=== PATIENT | male | born 1945 | race Caucasian/White ===

== ENCOUNTER 2016-10-06 03:15 | Inpatient (IN) | payer MEDICARE ==
[2016-10-06] MEDS ORDERED: NALOXONE 0.4 MG/ML 1 ML VIAL IV PRN (05:29)
[2016-10-06] MEDS ORDERED: ACETAMINOPHEN TAB 325 MG TAB PO PRN (05:29)
[2016-10-06] MEDS ORDERED: SODIUM CHLORIDE 0.9% 1,000 ML IV SCH (05:30)
--- NOTE | 2016-10-06 05:32 | ED ---
General Adult HPI - General Chief complaint: Dizziness Stated complaint: Neuro Consult Time Seen by Provider: 10/06/16 03:42 Source: patient Mode of arrival: EMS - History of Present Illness Initial comments: This patient is 71-year-old man transferred here from [facility], to have a possible stroke evaluation. He reportedly has history of Parkinson's disease. He was reported to have been sitting in restorationist tonight around 6 PM when he experienced a constellation of symptoms, including problems with word finding or possibly aphagia, a feeling of imbalance like he may fall to the side , and feeling weak and numb in all of the extremities. The patient presented to [facility] where he had a workup, including head CT and labs, and then was transferred here to have neurology consultation. It is reported that the patient had resolution of the symptoms, and he is not having complaints currently. Onset/Timin -: hour(s) Consistency: now resolved Improves with: none Worsens with: none Associated Symptoms: confusion, weakness Treatments Prior to Arrival: none - Related Data Home Medications Medication Instructions Recorded Confirmed Aspirin 81 mg PO DAILY 08/23/13 10/06/16 Carbidopa/Levodopa [Carbidopa-Levo 1 each PO QID 08/23/13 10/06/16 ER 50-200 Tab] FLUoxetine HCL [PROzac] 20 mg PO BID 08/23/13 10/06/16 Furosemide [Lasix] 40 mg PO DAILY 08/23/13 10/06/16 Metoprolol Tartrate [Lopressor] 12.5 mg PO BID 08/23/13 10/06/16 Multivitamin [Men's Multi-Vitamin] 1 each PO DAILY 08/23/13 10/06/16 Nitroglycerin Sl Tabs [Nitrostat] 0.4 mg SUBLINGUAL DIRECTED PRN 08/23/13 Omeprazole [PriLOSEC] 20 mg PO AC-BRKFST 08/23/13 10/06/16 Pramipexole [Mirapex] 1 mg PO TID 08/23/13 10/06/16 Cholecalciferol (Vitamin D3) 20,000 unit PO DAILY 10/06/16 10/06/16 [Vitamin D3] Docusate [Colace] 100 mg PO HS 10/06/16 10/06/16 Triamcinolone 0.1% Cream [Kenalog] 1 each TOPICAL BID 10/06/16 10/06/16 Allergies Allergy/AdvReac Type Severity Reaction Status Date / Time No Known Allergies Allergy Verified 08/23/13 01:01 Review of Systems ROS Statement: Those systems with pertinent positive or pertinent negative responses have been documented in the HPI. ROS Other: All systems not noted in ROS Statement are negative. Constitutional: Reports: weakness Eyes: Denies: vision change Respiratory: Denies: cough, dyspnea Cardiovascular: Denies: chest pain, palpitations, syncope Gastrointestinal: Denies: abdominal pain, vomiting, diarrhea Musculoskeletal: Denies: back pain Skin: Denies: rash Neurological: Reports: weakness, numbness, confusion. Denies: headache Past Medical History Past Medical History: Coronary Artery Disease (CAD), CVA/TIA, Hyperlipidemia, Hypertension, Osteoarthritis (OA) Additional Past Medical History / Comment(s): Parkinsons, acid reflux, Hard of hearing. TIA Uses cane for ambulation. History of Any Multi-Drug Resistant Organisms: MRSA Date of last positivie culture/infection: 2006 MDRO Source:: Lower back Past Surgical History: Back Surgery, Heart Catheterization With Stent Additional Past Surgical History / Comment(s): artifical knee 2006. Past Anesthesia/Blood Transfusion Reactions: No Reported Reaction Date of Last Stent Placement:: April Past Psychological History: Anxiety Smoking Status: Never smoker Past Alcohol Use History: Occasional Past Drug Use History: None Reported General Exam General appearance: alert, in no apparent distress Head exam: Present: atraumatic, normocephalic Eye exam: Present: normal appearance. Absent: scleral icterus, conjunctival injection ENT exam: Present: mucous membranes dry Neck exam: Present: normal inspection, full ROM Respiratory exam: Present: normal lung sounds bilaterally. Absent: respiratory distress, wheezes, rales, rhonchi, stridor Cardiovascular Exam: Present: regular rate, normal rhythm, normal heart sounds. Absent: systolic murmur, diastolic murmur, rubs, gallop GI/Abdominal exam: Present: soft. Absent: distended, tenderness, guarding, rebound, mass Extremities exam: Present: normal inspection, normal capillary refill. Absent: pedal edema, calf tenderness Neurological exam: Present: alert, CN II-XII intact. Absent: motor sensory deficit Skin exam: Present: warm, dry, intact, normal color. Absent: rash Course Vital Signs 10/06/16 10/06/16 03:18 05:12 Temperature 97.1 F L Pulse Rate 62 60 Respiratory 18 18 Rate Blood Pressure 131/71 108/60 O2 Sat by Pulse 94 L 94 L Oximetry Disposition Clinical Impression: TIA (transient ischemic attack) Disposition: ADMITTED IP TO THIS HOSP Condition: Fair
[2016-10-06 07:12] VITALS: BMI 30.4
[2016-10-06] MEDS ORDERED: NITROGLYCERIN SL TABS 0.4 MG TAB SUBLINGUAL PRN (07:37)
[2016-10-06] MEDS: ENOXAPARIN 40 MG/0.4 ML SYRINGE SQ SCH (08:49)
[2016-10-06] MEDS: METOPROLOL TARTRATE 12.5 MG TAB PO SCH ×2 (08:49→21:02)
[2016-10-06] MEDS: CARBIDOPA-LEVODOPA ER 50-200MG 1 EACH TABLET.ER PO SCH ×4 (08:50→21:03)
[2016-10-06] MEDS: ASPIRIN 81 MG CHEW PO SCH (08:50)
[2016-10-06] MEDS: PANTOPRAZOLE 40 MG TABLET PO SCH (08:51)
[2016-10-06] MEDS: FUROSEMIDE 40 MG TAB PO SCH (08:51)
[2016-10-06] MEDS: TRIAMCINOLONE 0.1% CREAM 80 GM TUBE TOPICAL SCH ×2 (08:51→21:04)
[2016-10-06] MEDS: PRAMIPEXOLE 1 MG TAB PO SCH ×3 (08:51→21:04)
[2016-10-06] MEDS ORDERED: CHOLECALCIFEROL 1,000 UNIT TAB PO SCH (09:00)
[2016-10-06] MEDS ORDERED: FLUoxetine HCL 20 MG CAP PO SCH (09:00)
[2016-10-06] MEDS: MULTIVITAMINS, THERA 1 EACH TAB PO SCH (11:58)
[2016-10-06 14:30] LABS: Basophils # (A) 0.1 k/uL (0-0.2); Basophils % (A) 1 %; CH 31.5; CHCM 33.4; Eosinophils # (A) 0.3 k/uL (0-0.7); Eosinophils % (A) 4 %; HCT 42.1 % (39.0-53.0); HDW 2.62; HGB 13.7 gm/dL (13.0-17.5); Luc # (Auto) 0.26; Luc % (Auto) 4; Lymphocytes # (A) 1.8 k/uL (1.0-4.8); Lymphocytes % (A) 24 %; MCH 30.9 pg (25.0-35.0); MCHC 32.6 g/dL (31.0-37.0); MCV 94.9 fL (80.0-100.0); Mean Platelet Volume 8.4; Monocytes # (A) 0.5 k/uL (0-1.0); Monocytes % (A) 6 %; Neutrophils # (A) 4.6 k/uL (1.3-7.7); Neutrophils % (A) 62 %; RBC 4.44 m/uL (4.30-5.90); RDW 14.3 % (11.5-15.5); WBC 7.4 k/uL (3.8-10.6); WBC (Perox) 7.41
[2016-10-06 14:46] LABS: ALT 16 U/L (21-72); AST 26 U/L (17-59); Alkaline Phosphatase 80 U/L (38-126); Anion Gap 9 mmol/L; Blood Urea Nitrogen 24 mg/dL (9-20); Calcium 9.2 mg/dL (8.4-10.2); Carbon Dioxide 25 mmol/L (22-30); Chloride 106 mmol/L (98-107); Glucose 94 mg/dL (74-99); Non-African American GFR(MDRD) >60 (>60 ml/min/1.73 sqM); Potassium 4.4 mmol/L (3.5-5.1); Sodium 140 mmol/L (137-145); Total Bilirubin 0.7 mg/dL (0.2-1.3); Total Protein 6.1 g/dL (6.3-8.2)
--- NOTE | 2016-10-06 17:15 | HP ---
DATE OF ADMISSION: 10/06/2016 PRESENTING COMPLAINT: Weak. HISTORY OF PRESENTING COMPLAINT: This is a very pleasant 71-year-old patient who was transferred here from [facility]. Chronic stable medical conditions include coronary artery disease with stent, hyperlipidemia, hypertension, osteoarthritis, hard of hearing. Patient also has got Parkinson disease. Yesterday in the afternoon the patient went to the bathroom, felt very weak, felt weak in both the arms and legs, which felt numb and then he went out to see a truck show with his family. Really felt tired, maybe change a little bit of his speech. It was pretty warm and humid outside. There were nonspecific findings. CT scan at [place]. The patient denies any fever, any burning in the urine. No cough or shortness of breath. Patient was transferred here accordingly. Patient normally uses a cane and sometimes a walker. Feels somewhat better. Patient had no focal weakness per se. REVIEW OF SYSTEMS: CONSTITUTIONAL: Tired. HEENT: Decreased hearing. RESPIRATORY: None. CARDIOVASCULAR: None. GASTROINTESTINAL: None. GENITOURINARY: None. MUSCULOSKELETAL: Aches and pains in different joints. DERMATOLOGICAL: None. HEMATOLOGIC: None. LYMPHATIC: None. PSYCHIATRY: Slightly forgetful. NEUROLOGICAL: Generalized weakness and rest as above. Past medical history of coronary artery disease stent, hypertension, hyperlipidemia, osteoarthritis, Parkinson's disease, hard of hearing. PAST SURGICAL HISTORY: Cardiac cath with stent, back surgery, artificial knee. SOCIAL HISTORY: . Does not smoke. Alcohol occasionally. Retired. Sometimes uses a cane versus a walker. HOME MEDICATIONS: 1. Kenalog 0.1% one application topical b.i.d. p.r.n. 2. Carafate 1 gram p.o. daily p.r.n. 3. Mirapex 0.5 mg p.o. t.i.d. 4. Prilosec 30 mg p.o. b.i.d. 5. Nitrostat 0.4 sublingual q.5 p.r.n. 6. Multivitamin 1 tablet p.o. daily. 7. Lopressor 12.5 p.o. b.i.d. 8. Lasix 40 mg p.o. daily. 9. Prozac 20 mg b.i.d. 10. Lotrisone one application topically b.i.d. 11. Carbidopa ER 1 tablet p.o. q.i.d. 50/100. 12. ( ) 40 mg q.h.s. ALLERGIES: None. PHYSICAL EXAMINATION: VITAL SIGNS ON PRESENTATION: Temperature 97.1, pulse 62, respirations 18, blood pressure 131/71, pulse ox 94% on room air. GENERAL APPEARANCE: Average build. Sitting up, tired-appearing. EYES: Pupils equal. Conjunctivae normal. HEENT: External appearance of nose and ears normal. Oral cavity normal. NECK: JVD not raised. Mass not palpable. RESPIRATORY: Effort normal. LUNGS: Fair air entry. CARDIOVASCULAR: First and second sounds normal. Minimal edema. ABDOMEN: Soft, nontender. Liver and spleen not palpable. LYMPHATIC: No lymph node palpable in neck or axillae. PSYCHIATRY: Alert, oriented x3. Mood and affect slightly slow appearing. NEUROLOGICAL: Patient is bent forward, slow speech. Power is equal in all the four limbs, slightly weak. Sensation is grossly preserved. INVESTIGATIONS: Troponin less than 0.012. ASSESSMENT: 1. This is probably an exacerbation of patient's Parkinson's disease which is on and off phenomena. Highly doubt a stroke. Symptoms of bilateral systemic including speech, arms, legs all were involved. Need to rule out underlying infection and normally these symptoms come and go on its own unclear of precipitating cause which could be from exertion from going out. 2. Coronary artery disease with prior history of stent. 3. Hyperlipidemia. 4. Essential hypertension. 5. Primary osteoarthritis in multiple joints. 6. Gait dysfunction, uses a walker. 7. Idiopathic Parkinson's disease. 8. Hard of hearing. PLAN: Home medications are resumed. Will give Lovenox for DVT prophylaxis. Care was discussed with the patient in detail. Rule out UA. Will also put the patient on aspirin since lacunar infarct is entirely possible.
[2016-10-06 19:00] LABS: Appearance,Urine Clear (Clear); Bilirubin,Urine Negative (Negative); Glucose,Urine (UA) Negative (Negative); Ketones,Urine Negative (Negative); Leukocyte Esterase,Urine Negative (Negative); Nitrite,Urine Negative (Negative); Protein,Urine Negative (Negative); Specific Gravity,Urine 1.014 (1.001-1.035); UA Billing (MACRO vs. MICRO) CHEM; Urobilinogen,Urine <2.0 mg/dL (<2.0)
[2016-10-06] MEDS ORDERED: ATORVASTATIN 40 MG TAB PO SCH (21:00)
[2016-10-06] MEDS ORDERED: DOCUSATE 100 MG CAP PO SCH (21:00)
[2016-10-06] MEDS: CLOTRIMAZOLE 1% CREAM 15 GM TUBE TOPICAL SCH (21:04)
[2016-10-07 05:23] VITALS: RESP 18
[2016-10-07 06:45] LABS: Basophils % (A) 0 %; CH 31.4; CHCM 34.5; Eosinophils # (A) 0.4 k/uL (0-0.7); Eosinophils % (A) 5 %; HDW 2.71; HGB 13.3 gm/dL (13.0-17.5); Luc # (Auto) 0.23; Luc % (Auto) 3; Lymphocytes # (A) 1.7 k/uL (1.0-4.8); Lymphocytes % (A) 24 %; MCH 31.2 pg (25.0-35.0); MCHC 34.1 g/dL (31.0-37.0); MCV 91.6 fL (80.0-100.0); Mean Platelet Volume 8.1; Monocytes # (A) 0.3 k/uL (0-1.0); Monocytes % (A) 5 %; Neutrophils # (A) 4.3 k/uL (1.3-7.7); Neutrophils % (A) 63 %; RBC 4.26 m/uL (4.30-5.90); WBC 6.9 k/uL (3.8-10.6); WBC (Perox) 7.11
[2016-10-07] MEDS: PANTOPRAZOLE 40 MG TABLET PO SCH (06:50)
[2016-10-07 07:00] LABS: ALT 18 U/L (21-72); AST 23 U/L (17-59); Alkaline Phosphatase 75 U/L (38-126); Anion Gap 8 mmol/L; Blood Urea Nitrogen 23 mg/dL (9-20); Carbon Dioxide 25 mmol/L (22-30); Chloride 104 mmol/L (98-107); Glucose 119 mg/dL (74-99); Non-African American GFR(MDRD) >60 (>60 ml/min/1.73 sqM); Sodium 137 mmol/L (137-145); Total Bilirubin 0.5 mg/dL (0.2-1.3); Total Protein 5.7 g/dL (6.3-8.2)
[2016-10-07 08:50] VITALS: TEMP 98
[2016-10-07] MEDS: ASPIRIN 81 MG CHEW PO SCH (08:50)
[2016-10-07] MEDS: CARBIDOPA-LEVODOPA ER 50-200MG 1 EACH TABLET.ER PO SCH ×2 (08:50→11:19)
[2016-10-07] MEDS: FUROSEMIDE 40 MG TAB PO SCH (08:51)
[2016-10-07] MEDS: ENOXAPARIN 40 MG/0.4 ML SYRINGE SQ SCH (08:51)
[2016-10-07] MEDS: PRAMIPEXOLE 1 MG TAB PO SCH (08:51)
[2016-10-07] MEDS: CLOTRIMAZOLE 1% CREAM 15 GM TUBE TOPICAL SCH (08:51)
[2016-10-07] MEDS: METOPROLOL TARTRATE 12.5 MG TAB PO SCH (08:51)
[2016-10-07] MEDS: TRIAMCINOLONE 0.1% CREAM 80 GM TUBE TOPICAL SCH (08:52)
[2016-10-07 11:19] VITALS: BP 128/72; PULSE 60
[2016-10-07] MEDS: MULTIVITAMINS, THERA 1 EACH TAB PO SCH (11:19)
--- NOTE | 2016-10-07 14:45 | P.PN ---
Subjective Principal diagnosis: Weakness This pleasant 71-year-old male being evaluated by the neurology service for an episode of weakness. He was transferred from the [facility]. He has a history of chronic stable Parkinson's disease. He reports starting to feel weak and tired in upper and lower extremities discontinued out for quite a few hours. He was started then proceeded to an outdoor truck show. His symptoms persisted and there was EMS on site then evaluated him to come to the [facility]. I have not reviewed the CT of the brain reportedly showed no acute intracranial abnormalities. His symptoms have resolved. At the time my exam he is sitting at his bedside waiting a ride for discharge. Objective - Vital Signs Vital signs: Vital Signs Temp 98 F 10/07/16 08:00 Pulse 60 10/07/16 11:18 Resp 18 10/07/16 11:18 BP 128/72 10/07/16 11:18 Pulse Ox 95 10/07/16 11:18 Intake & Output 10/06/16 10/07/16 10/07/16 18:59 06:59 18:59 Intake Total 548 360 Output Total 700 101 300 Balance -152 -101 60 Weight 90.7 kg 91.9 kg Intake: Oral 548 360 Output: Urine 700 100 300 Urine/Stool Mix 1 Other: Voiding Method Toilet Toilet # Voids 2 3 # Bowel Movements 1 1 - Constitutional General appearance: Present: average body habitus, cooperative, no acute distress - EENT Eyes: Present: EOMI, PERRLA. Absent: abnormal pupil ENT: Present: hard of hearing. Absent: hearing grossly normal - Neck Details: Limited extension Neck: Absent: normal ROM, rigidity - Respiratory Respiratory: negative: prolonged expiration, prolonged inspiration - Cardiovascular Rhythm: regular - Gastrointestinal General gastrointestinal: Absent: distended, tenderness - Neurologic Neurologic Comment(s): Is alert awake and oriented 3. Speech-language are normal. There is no facial asymmetry. Typical Parkinson's facies. There is no sensory deficit of the face or in bilateral lower extremities. Strength is 5 minus out of 5 bilateral lower extremities. Shuffling gait needed by walker. There is mild resting tremor bilateral upper extremities. No seizure-like activity seen. - Labs CBC & Chem 7: 10/07/16 06:22 10/07/16 06:22 Labs: Abnormal Lab Results - Last 24 Hours (Table) 10/06/16 10/07/16 10/07/16 Range/Units 14:11 06:22 06:22 RBC 4.26 L (4.30-5.90) m/uL BUN 24 H 23 H (9-20) mg/dL Glucose 119 H (74-99) mg/dL ALT 16 L 18 L (21-72) U/L Total Protein 6.1 L 5.7 L (6.3-8.2) g/dL Albumin 3.3 L 3.0 L (3.5-5.0) g/dL Assessment and Plan (1) Weakness generalized Status: Resolved (2) Weakness of both legs Status: Resolved (3) Parkinsons disease Status: Chronic (4) Arm paresthesia, left Status: Acute (5) Arm paresthesia, right Status: Acute (6) Paresthesias Status: Acute Plan: Given the bilateral nature of his symptoms, in the absence of any new focal neurological findings, doubt any cerebrovascular etiology. At the time of my exam he is being discharged. He will follow-up with his primary care physician in [place]. Continue current Parkinson's medication. I have reviewed the history and physical on the above patient. I have reviewed the above note, and agree.
--- NOTE | 2016-10-11 12:39 | DS ---
DATE OF ADMISSION: 10/06/2016 DATE OF DISCHARGE: 10/07/2016 FINAL DIAGNOSIS(ES): 1. Acute exacerbation of idiopathic Parkinson disease from on and off phenomenon from exertion. 2. Coronary artery disease with prior history of stent. 3. Hyperlipidemia. 4. Essential hypertension. 5. Primary osteoarthritis of multiple joints, bilateral. 6. Gait dysfunction uses a walker. 7. Hard of hearing. HOSPITAL COURSE: This patient presented with multiple symptoms of generalized weakness, change in speech. Looking more tired. There were no focal symptoms. CT scan at [place] from where the patient was transferred down, nonspecific. Patient was probably clinically a little bit dry. Did bounce to usual self. [place] to be exacerbation of idiopathic Parkinson's disease from on and off phenomena. The patient seen by Dr. Marte's team from neurology. On examination, appears quite back to his baseline. Care was discussed in detail with the patient and neurology team. Discharge planning more than 35 minutes. DISCHARGE MEDICATIONS: 1. Sinemet ER 50/200 1 tablet p.o. q.i.d. 2. Prozac 20 mg b.i.d. 3. Lopressor 12.5 p.o. b.i.d. 4. Men's multivitamin 1 tablet p.o. daily. 5. Nitrostat 0.4 sublingually q.5 p.r.n. 6. Prilosec 20 mg p.o. b.i.d. 7. Mirapex 0.5 p.o. t.i.d. 8. Lotrimin one application topically b.i.d. 9. Carafate 1 gram p.o. daily p.r.n. 10. Kenalog topical b.i.d. p.r.n. 11. Aspirin 81 mg p.o. daily. 12. Lipitor 40 mg q.h.s. 13. Colace 100 mg q.h.s. 14. Lasix 40 mg p.o. Friday, Friday and Friday. 15. Senokot-S 1 tablet p.o. daily. The patient is to follow up with his family doctor in 1 or 2 days. Discharge planning more than 35 minutes.
== END 2016-10-07 14:55 | disposition home or self-care (01) | DRG 57 ==
LOC: EC 03:15 → 6SEL 05:29
PROVIDERS: ADMIT Hospitalist; ATTEND Hospitalist
DX: G20 Parkinson's disease (principal); I10 Essential (primary) hypertension; E78.5 Hyperlipidemia, unspecified; I25.10 Atherosclerotic heart disease of native coronary artery without angina pectoris; F41.9 Anxiety disorder, unspecified; M19.91 Primary osteoarthritis, unspecified site; K21.9 Gastro-esophageal reflux disease without esophagitis; H91.90 Unspecified hearing loss, unspecified ear; R26.9 Unspecified abnormalities of gait and mobility; Z79.899 Other long term (current) drug therapy; Z95.5 Presence of coronary angioplasty implant and graft; Z86.73 Personal history of transient ischemic attack (TIA), and cerebral infarction without residual deficits
CPT/HCPCS: 80053; 81003; 84484; 85025; 99285

== ENCOUNTER 2017-05-19 03:30 | Observation (INO) | payer MEDICARE ==
[2017-05-19] MEDS ORDERED: NITROGLYCERIN SL TABS 0.4 MG TAB SUBLINGUAL PRN ×2 (04:12→06:13)
--- NOTE | 2017-05-19 04:12 | ED ---
Chest Pain HPI - General Chief Complaint: Chest Pain Stated Complaint: Chest pain Time Seen by Provider: 05/19/17 03:34 Source: patient, EMS Mode of arrival: EMS Limitations: no limitations - History of Present Illness Initial Comments: This patient is 72-year-old man transferred here from [facility]. He had gone there after he had noted substernal chest pain that started at 11. When the symptoms did not resolve he went to the other hospital, where he had a workup that was reportedly negative. The patient was started on heparin and had nitroglycerin drip and he states the pain resolved. He states that he continues to feel "pretty good." MD Complaint: chest pain -: hour(s) Onset: during rest Pain Location: substernal Pain Radiation: none Severity: moderate Quality: heaviness Consistency: constant, now resolved Improves With: nitroglycerin Worsens With: nothing Anginal Symptoms: dyspnea Treatments Prior to Arrival: aspirin, nitroglycerin, other (Heparin) - Related Data Home Medications Medication Instructions Recorded Confirmed Carbidopa/Levodopa [Carbidopa-Levo 1 tab PO QID 08/23/13 10/06/16 ER 50-200 Tab] FLUoxetine HCL [PROzac] 20 mg PO BID 08/23/13 10/06/16 Metoprolol Tartrate [Lopressor] 12.5 mg PO BID 08/23/13 10/06/16 Multivitamin [Men's Multi-Vitamin] 1 each PO DAILY 08/23/13 10/06/16 Nitroglycerin Sl Tabs [Nitrostat] 0.4 mg SUBLINGUAL Q5M PRN 08/23/13 10/06/16 Omeprazole [PriLOSEC] 40 mg PO BID 08/23/13 10/06/16 Pramipexole [Mirapex] 0.5 mg PO TID 08/23/13 10/06/16 Clotrimazole Cream [Lotrimin Cream] 1 applic TOPICAL BID 10/06/16 10/06/16 Sucralfate [Carafate] 1 gm PO DAILY PRN 10/06/16 10/06/16 Triamcinolone 0.1% Cream [Kenalog] 1 applic TOPICAL BID PRN 10/06/16 10/06/16 Previous Rx's Medication Instructions Recorded Aspirin 81 mg PO DAILY 10/07/16 Atorvastatin [Lipitor] 40 mg PO HS #30 tab 10/07/16 Docusate [Colace] 100 mg PO HS cap 10/07/16 Furosemide [Lasix] 40 mg PO MOWEFR #0 10/07/16 Sennosides-Docusate Sodium 1 tab PO DAILY #1 tablet 10/07/16 [Senokot-S] Allergies Allergy/AdvReac Type Severity Reaction Status Date / Time No Known Allergies Allergy Verified 05/19/17 03:41 Review of Systems ROS Statement: Those systems with pertinent positive or pertinent negative responses have been documented in the HPI. ROS Other: All systems not noted in ROS Statement are negative. Constitutional: Denies: fever, chills Respiratory: Denies: cough, dyspnea Cardiovascular: Reports: chest pain. Denies: palpitations, orthopnea, edema, syncope Gastrointestinal: Denies: abdominal pain, nausea, vomiting Genitourinary: Denies: dysuria, hematuria Musculoskeletal: Denies: back pain Skin: Denies: rash Neurological: Denies: headache, weakness, numbness EKG Findings - EKG Results: EKG: interpreted by ALEXANDRA, sinus rhythm (Rate proximal 61 bpm) - Blocks, Issue, Hypertrophy, ST Abn: AV and intraventricular conduction: right bundle branch block (fixed/ intermittent, complete/incomplete), left anterior fascicular block Past Medical History Past Medical History: Coronary Artery Disease (CAD), CVA/TIA, Hyperlipidemia, Hypertension, Osteoarthritis (OA) Additional Past Medical History / Comment(s): Parkinsons, acid reflux, Hard of hearing. TIA Uses cane for ambulation. History of Any Multi-Drug Resistant Organisms: MRSA Date of last positivie culture/infection: 2006 MDRO Source:: Lower back Past Surgical History: Back Surgery, Heart Catheterization With Stent Additional Past Surgical History / Comment(s): artifical knee 2006. Past Anesthesia/Blood Transfusion Reactions: No Reported Reaction Date of Last Stent Placement:: April Past Psychological History: Anxiety, Depression Smoking Status: Never smoker Past Alcohol Use History: Occasional Past Drug Use History: None Reported - Past Family History Mother Family Medical History: No Reported History Father Family Medical History: Congestive Heart Failure (CHF) General Exam Limitations: no limitations General appearance: alert, in no apparent distress Head exam: Present: atraumatic, normocephalic Eye exam: Present: normal appearance. Absent: scleral icterus, conjunctival injection ENT exam: Present: normal oropharynx Neck exam: Present: normal inspection Respiratory exam: Present: normal lung sounds bilaterally. Absent: respiratory distress, wheezes, rales, rhonchi, stridor Cardiovascular Exam: Present: regular rate, normal rhythm, normal heart sounds. Absent: systolic murmur, diastolic murmur, rubs, gallop GI/Abdominal exam: Present: soft. Absent: distended, tenderness, guarding, rebound, mass Extremities exam: Present: normal inspection, normal capillary refill. Absent: pedal edema, calf tenderness Back exam: Present: normal inspection. Absent: CVA tenderness (R), CVA tenderness (L) Neurological exam: Present: alert Skin exam: Present: warm, dry, intact, normal color. Absent: rash Course Vital Signs 05/19/17 05/19/17 03:37 04:26 Temperature 97.1 F L Pulse Rate 65 60 Respiratory 18 18 Rate Blood Pressure 135/76 135/76 O2 Sat by Pulse 97 98 Oximetry Disposition Clinical Impression: Chest pain Disposition: ADMITTED IP TO THIS HOSP Condition: Fair
[2017-05-19] MEDS ORDERED: SUCRALFATE 1 GM TAB PO PRN (04:15)
[2017-05-19] MEDS ORDERED: HEPARIN SOD,PORK IN 0.45% NACL 25,000 UNIT in 0.45% NACL 1 500ML.BAG IV SCH (04:15)
[2017-05-19] MEDS ORDERED: FUROSEMIDE 40 MG TAB PO SCH ×3 (04:15→09:00)
[2017-05-19] MEDS ORDERED: HEPARIN SODIUM,PORCINE 5,000 UNIT/ML 1 ML VIAL IV PRN (04:53)
--- NOTE | 2017-05-19 06:56 | P.HPIM ---
History of Present Illness H&P Date: 05/19/17 Chief Complaint: chest pain 72 year old male with history of CAD and stent in the past, presented with sudden on set severe chest pain described as left sided radiating to left shoulder 10/10 in severity sharp pain and heaviness, associated with trouble breathing and sweating, denies any nausea or vomiting or dizziness. started while sitting at a table relaxed visiting family. the pain did not subside and he decided to go to hospital, he had initial workup done at [facility] trops were negative, however, Nitro drip was started and it helped resolve the pain. he was then transfered by an ambulance ot our facility for further workup , he currently feels the pain is coming back,. He reports last time he had chest pain was 3-4 weeks ago but nothing similar to this severe attack, he reports that he is active and does some simple exercising some times, and he would never get any chest pain, he denies any coughing fever or chills. EKG showed no specific changes, labs unremarkable, trops negative. Review of Systems Constitutional: Patient denies fever, denies chills, denies night sweating, denies significant weight changes Eyes: Patient denies visual changes, denies eye pain ENT: Patient denies ear pain, denies rhinorrhea, denies sore throat Cardiovascular: Patient denies exertional dyspnea, denies peripheral leg edema, denies orthopnea, denies paroxysmal nocturnal dyspnea Respiratory:Patient denies cough, denies wheezing, Gastrointestinal: Patient denies diarrhea, denies constipation, denies nausea , denies vomiting, denies abdominal pain Genitourinary: Patient denies dysuria, denies hematuria, denies changes in urinary habits, denies genital lesions Musculoskeletal: Patient denies muscle pain, denies joint pain Psychiatric: Patient denies changes in mood or memory, denies suicidal ideation, denies anxiety Endocrine: Patient denies heat intolerance, denies cold intolerance, denies excessive thirst, denies polyuria Neurological: Patient denies focal neurologic deficits, denies weakness, denies numbness, denies tingling Hem/Lymphatic: Patient denies bleeding tendency, denies bruising, denies swollen lymph glands Allergic/Immun: Patient denies recent allergic reactions Skin: Patient denies rashes, denies pruritis, denies ulcers Past Medical History Past Medical History: Coronary Artery Disease (CAD), CVA/TIA, Hyperlipidemia, Hypertension, Osteoarthritis (OA) Additional Past Medical History / Comment(s): Parkinsons, acid reflux, Hard of hearing. TIA Uses cane for ambulation. History of Any Multi-Drug Resistant Organisms: MRSA Date of last positivie culture/infection: 2006 MDRO Source:: Lower back Past Surgical History: Back Surgery, Heart Catheterization With Stent Additional Past Surgical History / Comment(s): artifical knee 2006. Past Anesthesia/Blood Transfusion Reactions: No Reported Reaction Date of Last Stent Placement:: April 2013 Past Psychological History: Anxiety, Depression Smoking Status: Never smoker Past Alcohol Use History: Occasional Past Drug Use History: None Reported - Past Family History Mother Family Medical History: No Reported History Father Family Medical History: Congestive Heart Failure (CHF) Medications and Allergies Home Medications Medication Instructions Recorded Confirmed Type Carbidopa/Levodopa [Carbidopa-Levo 1 tab PO QID 08/23/13 05/19/17 History ER 50-200 Tab] FLUoxetine HCL [PROzac] 20 mg PO BID 08/23/13 05/19/17 History Metoprolol Tartrate [Lopressor] 12.5 mg PO BID 08/23/13 05/19/17 History Multivitamin [Men's Multi-Vitamin] 1 each PO DAILY 08/23/13 05/19/17 History Nitroglycerin Sl Tabs [Nitrostat] 0.4 mg SUBLINGUAL Q5M PRN 08/23/13 05/19/17 History Omeprazole [PriLOSEC] 40 mg PO BID 08/23/13 05/19/17 History Pramipexole [Mirapex] 0.5 mg PO TID 08/23/13 05/19/17 History Sucralfate [Carafate] 1 gm PO DAILY PRN 10/06/16 05/19/17 History Triamcinolone 0.1% Cream [Kenalog] 1 applic TOPICAL BID PRN 10/06/16 05/19/17 History Aspirin 81 mg PO DAILY 10/07/16 05/19/17 Rx Atorvastatin [Lipitor] 40 mg PO HS #30 tab 10/07/16 05/19/17 Rx Docusate [Colace] 100 mg PO HS cap 10/07/16 05/19/17 Rx Furosemide [Lasix] 40 mg PO MOWEFR #0 10/07/16 05/19/17 Rx Sennosides-Docusate Sodium 1 tab PO DAILY #1 tablet 10/07/16 05/19/17 Rx [Senokot-S] Artificial Tears-Hypromellose 1 drop BOTH EYES QID PRN 05/19/17 05/19/17 History [Artificial Tear Drops] Iron 65 mg PO MOWEFR 05/19/17 05/19/17 History Allergies Allergy/AdvReac Type Severity Reaction Status Date / Time No Known Allergies Allergy Verified 05/19/17 05:39 Physical Exam Vitals: Vital Signs Temp Pulse Pulse Resp BP BP Pulse Ox 05/19/17 06:05 18 05/19/17 05:08 98 F 62 18 123/75 96 05/19/17 04:26 60 18 135/76 98 05/19/17 03:37 97.1 F L 65 18 135/76 97 Intake and Output 05/18/17 05/18/17 05/19/17 14:59 22:59 06:59 Output Total 200 Balance -200 Output: Urine 200 Other: Voiding Method Urinal Weight 92.533 kg Patient Weight 05/19/17 06:59 Weight 92.533 kg Constitutional: No acute distress, conversant, pleasant Eyes: Anicteric sclerae, moist conjunctiva, no lid-lag Pupils equal round reactive to light ENMT: NC/AT Oropharynx clear, no erythema, exudates Neck: Supple, FROM, no masses, or JVD No carotid bruits No thyromegaly Lungs: Clear to auscultation Clear to percussion Normal respiratory effort, no accessory muscle use Cardiovascular: Heart regular in rate and rhythm, No murmurs, gallops, or rubs No peripheral edema Abdominal: Soft Nontender, no guarding, rebound or rigidity Abdomen moving with respiration Normoactive bowel sounds No hepatomegaly, No splenomegaly No palpable mass No abdominal wall hernia noted Skin: Normal temperature, tone, texture, turgor No induration No subcutaneous nodules No rash, lesions No ulcers Extremities: No digital cyanosis No clubbing Pedal pulses intact and symmetrical Radial pulses intact and symmetrical No calf tenderness Psychiatric: Alert and oriented to person, place Appropriate affect fair judgment Neuro Muscles Strength 4/5 in all 4 extremities Sensation to light touch grossly present throughout Cranial nerves II-XII grossly intact No focal sensory deficits Lymphatics: no palpable cervical or supraclavicular , or inguinal lymph nodes Thrombosis Risk Factor Assmnt - Choose All That Apply Any of the Below Risk Factors Present?: Yes Each Factor Represents 1 point: Obesity (BMI >25), Swollen legs (current) Other Risk Factors: Yes Each Risk Factor Represents 2 Points: Age 61-74 years Other congenital or acquired thrombophilia - If yes, enter type in comment: No Thrombosis Risk Factor Assessment Total Risk Factor Score: 4 Thrombosis Risk Factor Assessment Level: Moderate Risk Assessment and Plan Assessment: 72 year old male with history of CVA , CAD, parkinson disease, presented with sudden onset chest pain, admitted under observation to rule out ACS (1) Chest pain Narrative/Plan: admitted under observation to r/o ACS possible unstable angina nitro PRN heparin drip continue ASA, statin metoprolol oxygen via [place] cardiology consultation 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 cardiac enzymes Current Visit: Yes Status: Acute Code(s): R07.9 - CHEST PAIN, UNSPECIFIED SNOMED Code(s): 27862440 (2) CAD (coronary artery disease) Narrative/Plan: continue ASA , statin Current Visit: No Status: Chronic Code(s): I25.10 - ATHSCL HEART DISEASE OF [place] CORONARY ARTERY W/O ANG PCTRS SNOMED Code(s): 918252524 (3) HTN (hypertension) Narrative/Plan: controlled now , continue home medications Current Visit: No Status: Chronic Code(s): I10 - ESSENTIAL (PRIMARY) HYPERTENSION SNOMED Code(s): 51740880 (4) Hyperlipidemia Narrative/Plan: resume home meds Current Visit: No Status: Chronic Code(s): E78.5 - HYPERLIPIDEMIA, UNSPECIFIED SNOMED Code(s): 65601301 (5) DVT prophylaxis Narrative/Plan: currently on heparin drip for ACS Current Visit: Yes Status: Acute Code(s): FCI3798 - SNOMED Code(s): 266126532 Plan: CODE STATUS:full code Discussed with: Patient, ER, RN Anticipated discharge: <[address]: home A total of 40 minutes were spent on the care of this complex patient more than 50% of the time was spent in counseling and care coordination.
[2017-05-19] MEDS ORDERED: PANTOPRAZOLE 40 MG TABLET PO SCH (07:30)
[2017-05-19] MEDS ORDERED: REGADENOSON 0.4 MG/5 ML SYRINGE IV ONE (08:21)
[2017-05-19] MEDS ORDERED: AMINOPHYLLINE 500 MG/20 ML VIAL IV PRN (08:21)
[2017-05-19 08:55] LABS: Basophils % (A) 0 %; Eosinophils # (A) 0.2 k/uL (0-0.7); Eosinophils % (A) 3 %; HCT 43.3 % (39.0-53.0); Lymphocytes # (A) 1.8 k/uL (1.0-4.8); Lymphocytes % (A) 21 %; MCH 30.4 pg (25.0-35.0); MCHC 32.3 g/dL (31.0-37.0); MCV 94.1 fL (80.0-100.0); Mean Platelet Volume 8.5; Monocytes # (A) 0.5 k/uL (0-1.0); Monocytes % (A) 6 %; Neutrophils # (A) 5.9 k/uL (1.3-7.7); Neutrophils % (A) 68 %; Platelet Count 176 k/uL (150-450); RDW 13.4 % (11.5-15.5); WBC 8.8 k/uL (3.8-10.6)
[2017-05-19] MEDS: CARBIDOPA-LEVODOPA ER 50-200MG 1 EACH TABLET.ER PO SCH ×2 (08:57→14:03)
[2017-05-19] MEDS ORDERED: ASPIRIN 81 MG PO SCH (09:00)
[2017-05-19] MEDS ORDERED: METOPROLOL TARTRATE 12.5 MG TAB PO SCH (09:00)
[2017-05-19] MEDS ORDERED: SENNOSIDES-DOCUSATE SODIUM 1 EACH TAB PO SCH (09:00)
[2017-05-19] MEDS ORDERED: PRAMIPEXOLE 0.5 MG TAB PO SCH (09:00)
[2017-05-19] MEDS ORDERED: FLUoxetine HCL 20 MG CAP PO SCH ×2 (09:00)
[2017-05-19] MEDS ORDERED: PRAMIPEXOLE 1 MG TAB PO SCH (09:00)
[2017-05-19 09:17] LABS: Anion Gap 5 mmol/L; Blood Urea Nitrogen 22 mg/dL (9-20); Calcium 9.4 mg/dL (8.4-10.2); Carbon Dioxide 32 mmol/L (22-30); Chloride 104 mmol/L (98-107); Glucose 79 mg/dL (74-99); Potassium 4.2 mmol/L (3.5-5.1); Sodium 141 mmol/L (137-145)
[2017-05-19 09:22] LABS: Creatine Kinase 122 U/L (55-170)
[2017-05-19 09:34] LABS: Troponin I <0.012 ng/mL (0.000-0.034)
[2017-05-19 09:40] LABS: Creatine Kinase MB 3.3 ng/mL (0.0-2.4)
--- NOTE | 2017-05-19 10:14 | P.CRDCN ---
History of Present Illness Consult date: 05/19/17 Consult reason: chest pain History of present illness: Mr. Ross is a pleasant 72-year-old male past medical history significant for coronary artery disease, dyslipidemia and hypertension. He follows with Dr. Guadalupe in the office. We've been asked to see him in consultation for complaints of chest pain. He states yesterday while he was sitting at the table conversing with his son-in-law he developed a left precordial chest pain that radiated down into his left arm. He experienced associated shortness of breath. He took a sublingual nitroglycerin at home and felt some relief. By the time he arrived at the hospital his chest pain and shortness of breath had resolved. He was transferred here from [place] for further evaluation. He continues to be chest pain free. Telemetry tracings have been unremarkable. Most recent catheterization was done 08/2013 reveals a patent stent in the mid LAD with no evidence of other significant disease. Most recent echocardiogram performed in the office reveals preserved left ventricular systolic function with ejection fraction 55%, mild concentric left ventricular hypertrophy, and mild mitral regurgitation. EKG on arrival reveals a right bundle branch block pattern. Chest x-ray at [place] is negative for an acute cardiopulmonary process. Laboratory data reviewed, hemoglobin 14, platelets 176, potassium 4.2, BUN 22, Cr 0.89, cardiac enzymes negative x3. First set was done at [place]. Current cardiac medications include metoprolol 12.5 mg twice a day, Lasix 40 mg daily, atorvastatin 40 mg daily and aspirin 81 mg daily. Review of Systems The time of my exam: CONSTITUTIONAL: Denies fever. Denies chills. EYES: Denies blurred vision. Denies vision changes. Denies eye pain. EARS, NOSE, MOUTH & THROAT: Denies headache. Denies sore throat. Denies ear pain. CARDIOVASCULAR: Denies chest pain. Denies shortness of breath. Denies orthopnea. Denies PND. Denies palpitations. RESPIRATORY: Denies cough. GASTROINTESTINAL: Denies abdominal pain. Denies diarrhea. Denies constipation. Denies nausea. Denies vomiting. MUSCULOSKELETAL: Denies myalgias. INTEGUMENTARY: Denies pruitis. Denies rash. NEUROLOGIC: Denies numbness. Denies tingling. Denies weakness. PSYCHIATRIC: Denies anxiety. Denies depression. ENDOCRINE: Denies fatigue. Denies weight change. Denies polydipsia. Denies polyurina. GENITOURINARY: Denies burning, hematuria or urgency with micturation. HEMATOLOGIC: Denies history of anemia. Denies bleeding. Past Medical History Past Medical History: Coronary Artery Disease (CAD), CVA/TIA, Hyperlipidemia, Hypertension, Osteoarthritis (OA) Additional Past Medical History / Comment(s): Parkinsons, acid reflux, Hard of hearing. TIA Uses cane for ambulation. History of Any Multi-Drug Resistant Organisms: MRSA Date of last positivie culture/infection: 2006 MDRO Source:: Lower back Past Surgical History: Back Surgery, Heart Catheterization With Stent Additional Past Surgical History / Comment(s): artifical knee 2006. Past Anesthesia/Blood Transfusion Reactions: No Reported Reaction Date of Last Stent Placement:: April 2013 Past Psychological History: Anxiety, Depression Smoking Status: Never smoker Past Alcohol Use History: Occasional Past Drug Use History: None Reported - Past Family History Mother Family Medical History: No Reported History Father Family Medical History: Congestive Heart Failure (CHF) Medications and Allergies Home Medications Medication Instructions Recorded Confirmed Type Carbidopa/Levodopa [Carbidopa-Levo 1 tab PO QID 08/23/13 05/19/17 History ER 50-200 Tab] Metoprolol Tartrate [Lopressor] 12.5 mg PO BID 08/23/13 05/19/17 History Multivitamin [Men's Multi-Vitamin] 1 tab PO DAILY 08/23/13 05/19/17 History Nitroglycerin Sl Tabs [Nitrostat] 0.4 mg SUBLINGUAL Q5M PRN 08/23/13 05/19/17 History Omeprazole [PriLOSEC] 40 mg PO BID 08/23/13 05/19/17 History Pramipexole [Mirapex] 0.5 mg PO TID 08/23/13 05/19/17 History Sucralfate [Carafate] 1 gm PO DAILY PRN 10/06/16 05/19/17 History Atorvastatin [Lipitor] 40 mg PO HS #30 tab 10/07/16 05/19/17 Rx Sennosides-Docusate Sodium 1 tab PO DAILY #1 tablet 10/07/16 05/19/17 Rx [Senokot-S] Artificial Tears-Hypromellose 1 drop BOTH EYES QID PRN 05/19/17 05/19/17 History [Artificial Tear Drops] Aspirin EC [Ecotrin Low Dose] 81 mg PO DAILY 05/19/17 05/19/17 History Ferrous Sulfate [Feosol] 325 mg PO Q48H 05/19/17 05/19/17 History Furosemide [Lasix] 40 mg PO DAILY 05/19/17 05/19/17 History Allergies Allergy/AdvReac Type Severity Reaction Status Date / Time No Known Allergies Allergy Verified 05/19/17 08:46 Physical Exam Vitals: Vital Signs Temp Pulse Pulse Resp BP BP Pulse Ox 05/19/17 08:00 97.4 F L 57 L 16 157/93 96 05/19/17 06:05 18 05/19/17 05:08 98 F 62 18 123/75 96 05/19/17 04:26 60 18 135/76 98 05/19/17 03:37 97.1 F L 65 18 135/76 97 Intake and Output 05/18/17 05/19/17 05/19/17 22:59 06:59 14:59 Output Total 200 Balance -200 Output: Urine 200 Other: Voiding Method Urinal Urinal Weight 92.533 kg Blood pressure 157/93 heart rate 57 GENERAL: This is a 72-year-old male in no apparent distress at the time of my examination. HEENT: Head is atraumatic, normocephalic. Pupils are equal, round. Sclerae anicteric. Conjunctivae are clear. Mucous membranes of the mouth are moist. Neck is supple. There is no jugular venous distention. No carotid bruit is heard. LUNGS: Clear to auscultation no wheezes, rales or rhonchi. No chest wall tenderness is noted on palpation or with deep breathing. HEART: Regular rate and rhythm without murmurs, rubs or gallops. S1 and S2 heard. ABDOMEN: Soft, nontender. Bowel sounds are heard. No organomegaly noted. EXTREMITIES: 1+ bilateral lower extremity pitting edema and no calf tenderness noted. VASCULAR: Radial and dorsalis pedis pulses palpated, no evidence of clubbing. NEUROLOGIC: Patient is awake, alert and oriented x3. Slow to respond. Results 05/19/17 08:42 05/19/17 08:42 Cardiac Enzymes 05/19/17 05/19/17 Range/Units 03:44 08:42 CK-MB (CK-2) 3.3 H* (0.0-2.4) ng/mL Troponin I 0.014 <0.012 (0.000-0.034) ng/mL CBC 05/19/17 Range/Units 08:42 WBC 8.8 (3.8-10.6) k/uL RBC 4.60 (4.30-5.90) m/uL Hgb 14.0 (13.0-17.5) gm/dL Hct 43.3 (39.0-53.0) % Plt Count 176 (150-450) k/uL Comprehensive Metabolic Panel 05/19/17 Range/Units 08:42 Sodium 141 (137-145) mmol/L Potassium 4.2 (3.5-5.1) mmol/L Chloride 104 (98-107) mmol/L Carbon Dioxide 32 H (22-30) mmol/L BUN 22 H (9-20) mg/dL Creatinine 0.89 (0.66-1.25) mg/dL Glucose 79 (74-99) mg/dL Calcium 9.4 (8.4-10.2) mg/dL Current Medications Generic Name Dose Route Start Last Admin Trade Name Freq PRN Reason Stop Dose Admin Aminophylline 100 mg 05/19/17 08:21 Aminophylline IV 05/19/17 23:00 ONCE PRN Patient Response Aspirin 325 mg 05/20/17 09:00 Aspirin PO DAILY [facility] Atorvastatin Calcium 40 mg 05/19/17 21:00 Lipitor PO HS [facility] Carbidopa/Levodopa 1 each 05/19/17 09:00 05/19/17 08:57 Sinemet Er 50-200 PO 1 each QID ONEL Administration Docusate Sodium 100 mg 05/19/17 21:00 Colace PO HS [facility] Fluoxetine HCl 60 mg 05/19/17 09:00 Prozac PO DAILY [facility] Furosemide 40 mg 05/19/17 09:00 05/19/17 08:56 Lasix PO 40 mg DAILY ONEL Administration Heparin Sodium (Porcine) 0 unit 05/19/17 04:53 Heparin IV PER PROTOCOL PRN Low PTT Protocol Metoprolol Tartrate 12.5 mg 05/19/17 09:00 05/19/17 08:56 Lopressor PO 12.5 mg BID ONEL Administration Nitroglycerin 0.4 mg 05/19/17 04:12 Nitrostat SUBLINGUAL Q5M PRN Chest Pain Pantoprazole Sodium 40 mg 05/19/17 07:30 05/19/17 08:57 Protonix PO 40 mg AC-BID ONEL Administration Pramipexole Dihydrochloride 0.5 mg 05/19/17 09:00 05/19/17 08:56 Mirapex PO 0.5 mg BID ONEL Administration Senna/Docusate Sodium 1 each 05/19/17 09:00 05/19/17 08:59 Senokot-S PO Not Given DAILY ON[facility] Sucralfate 1 gm 05/19/17 04:15 Carafate PO DAILY PRN Heartburn Intake and Output 05/18/17 05/19/17 05/19/17 22:59 06:59 14:59 Output Total 200 Balance -200 Output: Urine 200 Other: Voiding Method Urinal Urinal Weight 92.533 kg 05/19/17 08:42 05/19/17 08:42 Assessment and Plan Assessment: ASSESSMENT 1. Precordial chest pain at rest, atypical. Negative cardiac enzymes and no changes on EKG. 2. History of CAD with most recent cath 2013 revealing patent mid LAD stent 3. History of hypertension 4. Dyslipidemia PLAN Perform Lexiscan stress test to evaluate for reversible cardiac ischemia. Continue with aspirin, lasix, atorvastatin and metoprolol as was previously ordered. Further recommendations will be based upon clinical course. Thank you kindly for this consultation. Nurse Practitioner note has been reviewed, I agree with a documented findings and plan of care. Patient was seen and examined.
--- NOTE | 2017-05-19 11:40 | EST ---
EXERCISE STRESS AGE: 72 SEX: M HT: 5'9" WT: 204 PROTOCOL: Lexiscan Cardiolite STAGE: HEART RATE REST: 58 BLOOD PRESSURE REST: 149/87 MAXIMUM HEART RATE ACHIEVED: 73 MAXIMUM BLOOD PRESSURE: 185/84 85% MPHR: 127 100% MPHR: 149 METS: @@ INDICATIONS: Chest pain. STRESS DATA: Pretesting physical examination showed a heart rate of 58, pressure is 149/87 mmHg. Baseline EKG showed sinus rhythm. The patient was given 0.4 mg of Lexiscan over 15 seconds per protocol. Max heart rate was 93. Max pressure was 185/84 mmHg. Clinically the patient did not have any symptoms of chest pain or discomfort. The EKG did not show any significant ST or T-wave abnormalities consistent with ischemia. CONCLUSION: 1. Nondiagnostic electrocardiogram stress response to Lexiscan. 2. Please follow up on the Cardiolite portion on separate report. MMODL / IJN: [id number] /
--- NOTE | 2017-05-19 11:52 | NM ---
EXAMINATION TYPE: NM stress lexiscan cardiolite DATE OF EXAM: 05/19/2017 COMPARISON: NONE HISTORY: Chest pain TECHNIQUE: After the intravenous administration of 27.7 mCi Tc 99m Sestamibi - Cardiolite resting SP ECT images acquired 45 minutes post injection. The patient received 0.4mg Lexiscan, 11.5 mCi Tc 99m Sestamibi - Stress images obtained [address] injection FINDINGS: Resting images have a defect along the lateral wall which is not identified on the stress images. The finding is likely artifact. Some mild diminished radiotracer along the inferior wall is not entirely excluded. This could be a diaphragm artifact. The ejection fraction of 56% is normal. IMPRESSION: 1. No reversible perfusion defects are identified suggesting stress-induced ischemic change. 2. Large defects on the resting images are likely artifact more normal-appearing stress images. 3. Normal ejection fraction of 56%
[2017-05-19 12:07] VITALS: RESP 18
--- NOTE | 2017-05-19 13:03 | P.DS ---
Providers Date of admission: 05/19/17 04:15 Expected date of discharge: 05/19/17 Attending physician: Tip Rivera MD Consults: 05/19/17 04:12 Consult Physician Routine Consulting Provider: Momo Queen Consult Reason/Comments: chest pain Do you want consulting provider notified?: Yes Primary care physician: Chidi Morgan MD - Discharge Diagnosis(es) (1) Acute arthritis Current Visit: Yes Status: Acute (2) Chest pain Current Visit: Yes Status: Acute (3) CAD (coronary artery disease) Current Visit: No Status: Chronic (4) HTN (hypertension) Current Visit: No Status: Chronic (5) Hyperlipidemia Current Visit: No Status: Chronic Hospital Course: Patient is a 72-year-old male with a history of coronary artery disease status post PCI, TIA, Parkinson's disease, acid reflux, hypertension, and dyslipidemia who initially presented to the ER at [facility] with complaints of chest pain. There he underwent an evaluation. His initial vital signs were found to be within normal limits. Initial troponin was negative. EKG did not reveal any significant ST-T wave changes. He was started on a nitro drip and heparin drip and arrangements were made for transportation here. On arrival here he was chest pain free. His additional 2 troponins here were negative. His telemetry remained unchanged. He was seen by cardiology. He underwent a Lexiscan stress test which did not show any signs of reversible ischemia and did show preserved ejection fraction of 56%$. It was determined that his chest pain was likely noncardiac. On physical exam he did have some pain over palpation to the left bicep area as well as pain over the left shoulder with movement. It was felt that his pain likely was musculoskeletal in origin. He does have significant weakness and gait instability. I discussed with the patient and he is agreeable follow-up home health care with physical therapy for treatment of left arm arthritis and pain. I've also recommended RN for home health care to follow his blood pressures. He is discharged home in stable condition. He will follow-up with Dr. Guadalupe of cardiology and Dr. Morgan his primary care doctor. He was also instructed to seek medical attention should the pain recur in severity is no stress test is 100% accurate. Patient seen and examined at bedside. No additional chest pain, shortness of breath, nausea, or vomiting. Does typically walk with a cane at home and uses this in his right arm. He has not had any recent changes in his medications or increased medications. Vital signs reviewed and stable. General: non toxic, no distress, appears at stated age, kyphotic, antalgic gait Derm: warm, dry Head: atraumatic, normocephalic, symmetric Eyes: EOMI, no lid lag, anicteric sclera Mouth: no lip lesion, mucus membranes moist Cardiovascular: S1S2 reg, no murmur, positive posterior tibial pulse bilateral, Lungs: CTA bilateral, no rhonchi, no rales , no accessory muscle use Abdominal: soft, nontender to palpation, no guarding, no appreciable organomegaly Ext: no gross muscle atrophy, no edema, no contractures, positive empty can test on the left, + pain to palpation over left bicep area, pain to resisted abduction and abduction of left arm Neuro: CN II-XI grossly intact, no focal neuro deficits Psych: Alert, oriented, appropriate affect A total of 25 minutes of time were spent preparing this complex discharge summary . Pertinent Studies: Lexiscan-no reversible perfusion defects are identified suggesting stress- induced ischemia, large defects on resting images likely motion artifact are more normal-appearing on stress images, ejection fraction 56%. Patient Condition at Discharge: Fair Plan - Discharge Summary New Discharge Prescriptions: New Aspirin 81 mg PO DAILY chew FLUoxetine HCL [PROzac] 60 mg PO DAILY cap Continue Carbidopa/Levodopa [Carbidopa-Levo ER 50-200 Tab] 1 tab PO QID Pramipexole [Mirapex] 0.5 mg PO TID Nitroglycerin Sl Tabs [Nitrostat] 0.4 mg SUBLINGUAL Q5M PRN PRN Reason: Chest Pain Omeprazole [PriLOSEC] 40 mg PO BID Multivitamin [Men's Multi-Vitamin] 1 tab PO DAILY Metoprolol Tartrate [Lopressor] 12.5 mg PO BID Sucralfate [Carafate] 1 gm PO DAILY PRN PRN Reason: Heartburn Atorvastatin [Lipitor] 40 mg PO HS #30 tab Sennosides-Docusate Sodium [Senokot-S] 1 tab PO DAILY #1 tablet Artificial Tears-Hypromellose [Artificial Tear Drops] 1 drop BOTH EYES QID PRN PRN Reason: Dry Eye(S) Furosemide [Lasix] 40 mg PO DAILY Aspirin EC [Ecotrin Low Dose] 81 mg PO DAILY Ferrous Sulfate [Iron (65 MG Elemental)] 325 mg PO Q48H Discharge Medication List Carbidopa/Levodopa [Carbidopa-Levo ER 50-200 Tab] 1 tab PO QID 08/23/13 [History ] Metoprolol Tartrate [Lopressor] 12.5 mg PO BID 08/23/13 [History] Multivitamin [Men's Multi-Vitamin] 1 tab PO DAILY 08/23/13 [History] Nitroglycerin Sl Tabs [Nitrostat] 0.4 mg SUBLINGUAL Q5M PRN 08/23/13 [History] Omeprazole [PriLOSEC] 40 mg PO BID 08/23/13 [History] Pramipexole [Mirapex] 0.5 mg PO TID 08/23/13 [History] Sucralfate [Carafate] 1 gm PO DAILY PRN 10/06/16 [History] Atorvastatin [Lipitor] 40 mg PO HS #30 tab 10/07/16 [Rx] Sennosides-Docusate Sodium [Senokot-S] 1 tab PO DAILY #1 tablet 10/07/16 [Rx] Artificial Tears-Hypromellose [Artificial Tear Drops] 1 drop BOTH EYES QID PRN 05/19/17 [History] Aspirin 81 mg PO DAILY chew 05/19/17 [Rx] Aspirin EC [Ecotrin Low Dose] 81 mg PO DAILY 05/19/17 [History] FLUoxetine HCL [PROzac] 60 mg PO DAILY cap 05/19/17 [Rx] Ferrous Sulfate [Iron (65 MG Elemental)] 325 mg PO Q48H 05/19/17 [History] Furosemide [Lasix] 40 mg PO DAILY 05/19/17 [History] Follow up Appointment(s)/Referral(s): Chidi Morgan MD [Primary Care Provider] - 1-2 days Tyron Guadalupe MD [STAFF PHYSICIAN] - 06/27/17 2:45 pm Activity/Diet/Wound Care/Special Instructions: heart healthy diet, activity as tolerated Discharge Disposition: HOME SELF-CARE
[2017-05-19 15:23] VITALS: BP 113/59; PULSE 66; TEMP 97.6
[2017-05-19] MEDS ORDERED: ATORVASTATIN 40 MG TAB PO SCH (21:00)
[2017-05-19] MEDS ORDERED: DOCUSATE 100 MG CAP PO SCH (21:00)
[2017-05-20] MEDS ORDERED: ASPIRIN 325 MG TAB PO SCH (09:00)
[2017-05-20] MEDS ORDERED: ASPIRIN 81 MG PO SCH (09:00)
== END 2017-05-19 15:55 | disposition home health service (06) ==
LOC: EC 03:30 → 3OBS 04:15
PROVIDERS: ADMIT Internal Medicine; ATTEND Internal Medicine
DX: R07.89 Other chest pain (principal); M19.90 Unspecified osteoarthritis, unspecified site; I10 Essential (primary) hypertension; G20 Parkinson's disease; I25.10 Atherosclerotic heart disease of native coronary artery without angina pectoris; E78.5 Hyperlipidemia, unspecified; K21.9 Gastro-esophageal reflux disease without esophagitis; F41.9 Anxiety disorder, unspecified; F32.9 Major depressive disorder, single episode, unspecified; H91.90 Unspecified hearing loss, unspecified ear; R22.43 Localized swelling, mass and lump, lower limb, bilateral; E66.9 Obesity, unspecified; Z68.25 Body mass index [BMI] 25.0-25.9, adult; Z79.899 Other long term (current) drug therapy; Z95.5 Presence of coronary angioplasty implant and graft; Z86.73 Personal history of transient ischemic attack (TIA), and cerebral infarction without residual deficits; Z86.14 Personal history of Methicillin resistant Staphylococcus aureus infection; Z82.49 Family history of ischemic heart disease and other diseases of the circulatory system
CPT/HCPCS: 99285 ×2; 36415; 93005; 93017; 80048; 82550; 82553; 84484; 85025; 78452; G0378; A9500; J1644; J2785

== ENCOUNTER 2017-11-02 00:57 | Inpatient (IN) | payer MEDICARE ==
[2017-11-02] MEDS ORDERED: NITROGLYCERIN-D5W PMX 50 MG in DEXTROSE/WATER 1 250ML.BAG IV ONE (01:13)
--- NOTE | 2017-11-02 01:14 | ED ---
Chest Pain HPI - General Chief Complaint: Chest Pain Stated Complaint: Chest pain Time Seen by Provider: 11/02/17 01:00 Source: patient Mode of arrival: ambulatory Limitations: no limitations - History of Present Illness Initial Comments: This patient is 72-year-old man who is transferred here from [facility] for admission related to chest pain. He has history of previous coronary artery disease and stenting. The patient developed chest pain tonight around 8 PM and presented to the other hospital. He was seen there, with an initial workup that was negative. The patient was started on oxygen, nitroglycerin drip which did relieve the pain, and transferred here. The patient states that he is feeling much better. MD Complaint: chest pain -: hour(s) Onset: during rest Pain Location: substernal Severity: moderate Quality: tightness Consistency: constant Improves With: nitroglycerin Worsens With: nothing Treatments Prior to Arrival: aspirin, nitroglycerin, oxygen - Related Data Home Medications Medication Instructions Recorded Confirmed Carbidopa/Levodopa [Carbidopa-Levo 1 tab PO QID 08/23/13 05/19/17 ER 50-200 Tab] Metoprolol Tartrate [Lopressor] 12.5 mg PO BID 08/23/13 05/19/17 Multivitamin [Men's Multi-Vitamin] 1 tab PO DAILY 08/23/13 05/19/17 Nitroglycerin Sl Tabs [Nitrostat] 0.4 mg SUBLINGUAL Q5M PRN 08/23/13 05/19/17 Omeprazole [PriLOSEC] 40 mg PO BID 08/23/13 05/19/17 Pramipexole [Mirapex] 0.5 mg PO TID 08/23/13 05/19/17 Sucralfate [Carafate] 1 gm PO DAILY PRN 10/06/16 05/19/17 Artificial Tears-Hypromellose 1 drop BOTH EYES QID PRN 05/19/17 05/19/17 [Artificial Tear Drops] Aspirin EC [Ecotrin Low Dose] 81 mg PO DAILY 05/19/17 05/19/17 Ferrous Sulfate [Iron (65 MG 325 mg PO Q48H 05/19/17 05/19/17 Elemental)] Furosemide [Lasix] 40 mg PO DAILY 05/19/17 05/19/17 Previous Rx's Medication Instructions Recorded Atorvastatin [Lipitor] 40 mg PO HS #30 tab 10/07/16 Sennosides-Docusate Sodium 1 tab PO DAILY #1 tablet 10/07/16 [Senokot-S] Aspirin 81 mg PO DAILY chew 05/19/17 FLUoxetine HCL [PROzac] 60 mg PO DAILY cap 05/19/17 Allergies Allergy/AdvReac Type Severity Reaction Status Date / Time No Known Allergies Allergy Verified 11/02/17 01:05 Review of Systems ROS Statement: Those systems with pertinent positive or pertinent negative responses have been documented in the HPI. ROS Other: All systems not noted in ROS Statement are negative. Constitutional: Denies: fever, weakness Respiratory: Denies: cough, dyspnea Cardiovascular: Reports: chest pain. Denies: palpitations, edema, syncope Gastrointestinal: Denies: abdominal pain, vomiting, diarrhea Musculoskeletal: Denies: back pain Skin: Denies: rash Neurological: Denies: headache, weakness, numbness Past Medical History Past Medical History: Coronary Artery Disease (CAD), Heart Failure, CVA/TIA, Hyperlipidemia, Hypertension, Osteoarthritis (OA) Additional Past Medical History / Comment(s): Parkinsons, acid reflux, Hard of hearing. TIA Uses cane for ambulation. History of Any Multi-Drug Resistant Organisms: MRSA Date of last positivie culture/infection: 2006 MDRO Source:: Lower back Past Surgical History: Back Surgery, Heart Catheterization With Stent Additional Past Surgical History / Comment(s): artifical knee 2006. Past Anesthesia/Blood Transfusion Reactions: No Reported Reaction Date of Last Stent Placement:: April 2013 Past Psychological History: Anxiety, Depression Smoking Status: Never smoker Past Alcohol Use History: Occasional Past Drug Use History: None Reported - Past Family History Mother Family Medical History: No Reported History Father Family Medical History: Congestive Heart Failure (CHF) General Exam Limitations: no limitations General appearance: alert, in no apparent distress Head exam: Present: atraumatic, normocephalic Eye exam: Present: normal appearance. Absent: scleral icterus, conjunctival injection ENT exam: Present: normal oropharynx Neck exam: Present: normal inspection, full ROM Respiratory exam: Present: normal lung sounds bilaterally. Absent: respiratory distress, wheezes, rales, rhonchi, stridor, chest wall tenderness Cardiovascular Exam: Present: regular rate, normal rhythm, normal heart sounds. Absent: systolic murmur, diastolic murmur, rubs, gallop GI/Abdominal exam: Present: soft. Absent: distended, tenderness, guarding, rebound, rigid Extremities exam: Present: normal inspection, normal capillary refill. Absent: pedal edema, calf tenderness Back exam: Present: normal inspection. Absent: CVA tenderness (R), CVA tenderness (L) Neurological exam: Present: alert Skin exam: Present: warm, dry, intact, normal color. Absent: rash Course Vital Signs 11/02/17 11/02/17 11/02/17 01:01 01:35 01:43 Temperature 97.8 F 97.9 F Pulse Rate 84 66 Pulse Rate [ 61 Quality Systems Technician ] Respiratory 17 12 18 Rate Blood Pressure 123/72 111/68 Blood Pressure 95/60 [Left Arm] O2 Sat by Pulse 96 96 90 L Oximetry Chest Pain MDM - [place] Patient is 72-year-old man with history of previous coronary disease transferred here from outside hospital to have further cardiac evaluation. Patient's symptoms have improved and his initial workup is negative. Case discussed with Dr. Iqbal, who will admit with cardiology consultation. Disposition Clinical Impression: Chest pain Disposition: ADMITTED IP TO THIS HOSP Condition: Fair
[2017-11-02 02:01] LABS: Creatine Kinase 96 U/L (55-170)
[2017-11-02 02:14] LABS: Troponin I <0.012 ng/mL (0.000-0.034)
[2017-11-02 02:20] LABS: Creatine Kinase MB 3.3 ng/mL (0.0-2.4)
[2017-11-02 02:28] LABS: Glucose,Whole Blood 105 mg/dL (75-99)
[2017-11-02 02:53] VITALS: BMI 30.4
[2017-11-02] MEDS ORDERED: SUCRALFATE 1 GM TAB PO PRN (04:12)
[2017-11-02] MEDS ORDERED: ARTIFICIAL TEARS-HYPROMELLOSE DROPS 15 ML BTL BOTH EYES PRN (04:12)
--- NOTE | 2017-11-02 05:10 | P.HPIM ---
History of Present Illness H&P Date: 11/02/17 Chief Complaint: chest pain 72 year old male with history of CAD s/p stents . patient was transferred to our facility from [facility] due to chest pain for further management. Patient reports that he has sudden chest pain after returning back to home last night where he felt chest pain across of his shoulder he felted as pressure-like 10 out of 10 in severity and he reports that it was different from his arthritis pain. He took up and nitro pill and try to relax and washout but he didn't find much relief and then ended up taking 3 more pills and called the telemetry nurse who suggested that he goes to the nearest ER. So he went to [facility] which transferred him to our facility. Patient reports that this patient's chest pain has been relieved now since he start nitro drip, he reports the chest pain was associated with some dizziness sweating and some difficulty breathing. Denies any nausea or heart racing or irregular heartbeat. Patient was here around April of this year for similar complaint he had the negative stress test and the pain was thought to be due to mainly arthritis. He was supposed to follow up with cardiology as an outpatient to have an echo done. Patient otherwise denies any fevers or chills denies any coughing denies any abdominal pain nausea or vomiting he denies any changes in his bowel or urinary habits. Patient has history of Parkinson and restless legs. Patient wishes us to be a full code and named his is surrogate decision maker Review of Systems Pertinent positives as noted in HPI. All other systems were reviewed and are negative Past Medical History Past Medical History: Coronary Artery Disease (CAD), Heart Failure, CVA/TIA, Hyperlipidemia, Hypertension, Osteoarthritis (OA) Additional Past Medical History / Comment(s): Parkinsons, acid reflux, Hard of hearing. TIA Uses cane for ambulation. History of Any Multi-Drug Resistant Organisms: MRSA Date of last positivie culture/infection: 2006 MDRO Source:: Lower back Past Surgical History: Back Surgery, Heart Catheterization With Stent Additional Past Surgical History / Comment(s): artifical knee 2006. Past Anesthesia/Blood Transfusion Reactions: No Reported Reaction Date of Last Stent Placement:: April 2013 Past Psychological History: Anxiety, Depression Smoking Status: Never smoker Past Alcohol Use History: Occasional Past Drug Use History: None Reported - Past Family History Mother Family Medical History: No Reported History Father Family Medical History: Congestive Heart Failure (CHF) Medications and Allergies Home Medications Medication Instructions Recorded Confirmed Type Carbidopa/Levodopa [Carbidopa-Levo 1 tab PO QID 08/23/13 05/19/17 History ER 50-200 Tab] Metoprolol Tartrate [Lopressor] 12.5 mg PO BID 08/23/13 05/19/17 History Multivitamin [Men's Multi-Vitamin] 1 tab PO DAILY 08/23/13 05/19/17 History Nitroglycerin Sl Tabs [Nitrostat] 0.4 mg SUBLINGUAL Q5M PRN 08/23/13 05/19/17 History Omeprazole [PriLOSEC] 40 mg PO BID 08/23/13 05/19/17 History Pramipexole [Mirapex] 0.5 mg PO TID 08/23/13 05/19/17 History Sucralfate [Carafate] 1 gm PO DAILY PRN 10/06/16 05/19/17 History Atorvastatin [Lipitor] 40 mg PO HS #30 tab 10/07/16 05/19/17 Rx Sennosides-Docusate Sodium 1 tab PO DAILY #1 tablet 10/07/16 05/19/17 Rx [Senokot-S] Artificial Tears-Hypromellose 1 drop BOTH EYES QID PRN 05/19/17 05/19/17 History [Artificial Tear Drops] Aspirin 81 mg PO DAILY chew 05/19/17 Rx Aspirin EC [Ecotrin Low Dose] 81 mg PO DAILY 05/19/17 05/19/17 History FLUoxetine HCL [PROzac] 60 mg PO DAILY cap 05/19/17 Rx Ferrous Sulfate [Iron (65 MG 325 mg PO Q48H 05/19/17 05/19/17 History Elemental)] Furosemide [Lasix] 40 mg PO DAILY 05/19/17 05/19/17 History Allergies Allergy/AdvReac Type Severity Reaction Status Date / Time No Known Allergies Allergy Verified 11/02/17 01:05 Physical Exam Vitals: Vital Signs Temp Pulse Pulse Resp BP BP Pulse Ox 11/02/17 03:20 97.9 F 12 95/60 97 11/02/17 01:43 66 18 111/68 90 L 11/02/17 01:35 97.9 F 61 12 95/60 96 11/02/17 01:01 97.8 F 84 17 123/72 96 Intake and Output 11/01/17 11/01/17 11/02/17 14:59 22:59 06:59 Other: Voiding Method Urinal Weight 90.7 kg Constitutional: No acute distress, conversant, pleasant Eyes: Anicteric sclerae, moist conjunctiva, no lid-lag Pupils equal round reactive to light ENMT: NC/AT Oropharynx clear, no erythema, or exudates Neck: Supple, FROM, no masses, or JVD No carotid bruits No thyromegaly Lungs: Clear to auscultation Clear to percussion Normal respiratory effort, no accessory muscle use Cardiovascular: Heart regular in rate and rhythm, No murmurs, gallops, or rubs No peripheral edema Abdominal: Soft Nontender, no guarding, rebound or rigidity Abdomen moving with respiration Normoactive bowel sounds No hepatomegaly, No splenomegaly No palpable mass No abdominal wall hernia noted Skin: Normal temperature, tone, texture, turgor No induration No subcutaneous nodules No rash, lesions No ulcers Extremities: No digital cyanosis No clubbing Pedal pulses intact and symmetrical Radial pulses intact and symmetrical No calf tenderness Psychiatric: Alert and oriented to person, place and time Parkinson facies fair judgment Neuro Muscles Strength 4/5 in all 4 extremities Sensation to light touch grossly present throughout Cranial nerves II-XII grossly intact No focal sensory deficits Lymphatics: no palpable cervical or supraclavicular , or inguinal lymph nodes Results Labs: Abnormal Lab Results - Last 24 Hours (Table) 11/02/17 11/02/17 Range/Units 01:27 02:26 POC Glucose (mg/dL) 105 H (75-99) mg/dL CK-MB (CK-2) 3.3 H* (0.0-2.4) ng/mL Thrombosis Risk Factor Assmnt - Choose All That Apply Each Risk Factor Represents 2 Points: Age 61-74 years Thrombosis Risk Factor Assessment Total Risk Factor Score: 2 Thrombosis Risk Factor Assessment Level: Low Risk Assessment and Plan Assessment: 72-year-old male with history of CVA and CAD status post stent patient is admitted to inpatient with anticipated length of stay of more than 2 days due to chest pain to rule out ACS. Patient was transferred to our facility from [facility] for further management due to chest Plan: unstable angina History of CAD Cardiology consult Nitro drip Continue aspirin and statin Oxygen via nasal cannula as needed Cardiac monitoring Currently patient is cardiac floor overflow in the ICU Hypertension currently borderline low normal Continue home medications metoprolol Hyperlipidemia continue statin Parkinson disease continue home medications arthritis pain control DVT prophylaxis heparin subcu 3 times a day Preformed a thorough record review from recent hospitalization as summarized in HPI where he had a negative stress test last time he was in the hospital around April this year, and at that time ACS was ruled out Surrogate decision-maker: Patient CODE STATUS: Full code Anticipated discharge: 48-[address]: Home A total of 50 minutes was spent on the care of this complex patient more than 50 % of the time was spent in counseling and care coordination.
[2017-11-02 06:49] LABS: Basophils % (A) 0 %; Eosinophils # (A) 0.2 k/uL (0-0.7); Eosinophils % (A) 3 %; HCT 39.2 % (39.0-53.0); Lymphocytes # (A) 1.7 k/uL (1.0-4.8); Lymphocytes % (A) 23 %; MCH 31.3 pg (25.0-35.0); MCHC 33.2 g/dL (31.0-37.0); Mean Platelet Volume 8.6; Monocytes # (A) 0.5 k/uL (0-1.0); Monocytes % (A) 7 %; Neutrophils # (A) 4.7 k/uL (1.3-7.7); Neutrophils % (A) 64 %; Platelet Count 171 k/uL (150-450); RBC 4.17 m/uL (4.30-5.90); RDW 14.1 % (11.5-15.5); WBC 7.3 k/uL (3.8-10.6)
[2017-11-02 07:09] LABS: ALT 35 U/L (21-72); AST 24 U/L (17-59); Albumin 3.2 g/dL (3.5-5.0); Alkaline Phosphatase 66 U/L (38-126); Anion Gap 3 mmol/L; Blood Urea Nitrogen 22 mg/dL (9-20); Calcium 8.8 mg/dL (8.4-10.2); Carbon Dioxide 32 mmol/L (22-30); Chloride 105 mmol/L (98-107); Glucose 82 mg/dL (74-99); Potassium 3.9 mmol/L (3.5-5.1); Sodium 140 mmol/L (137-145); Total Bilirubin 0.6 mg/dL (0.2-1.3); Total Protein 5.4 g/dL (6.3-8.2)
[2017-11-02 07:12] LABS: Creatine Kinase 72 U/L (55-170)
[2017-11-02 07:24] LABS: Creatine Kinase MB 2.2 ng/mL (0.0-2.4); Troponin I <0.012 ng/mL (0.000-0.034)
[2017-11-02] MEDS ORDERED: HEPARIN SODIUM,PORCINE 5,000 UNIT/ML 1 ML VIAL SQ SCH (08:00)
--- NOTE | 2017-11-02 08:30 | P.CRDCN ---
History of Present Illness Consult date: 11/02/17 Chief complaint: Chest discomfort History of present illness: This is a pleasant 72-year-old gentleman who sees Dr. Guadalupe in the office on regular basis with a past medical history significant for coronary artery disease and prior stenting of the LAD with the last heart catheterization was performed in 2013 showing patent stent in the LAD and lost a stress test was in April 2017 which was unremarkable presented to the hospital complaining of chest discomfort. The patient initially presented to [facility] with a chest discomfort and then he was transferred to [facility]. He was in his usual state of health yesterday when he was at the [employer] and he was getting into his car when he started experiencing chest discomfort, in the mid of the chest, as a sharp kind of discomfort, without any radiation to the neck or arms or shoulders but it was estimated with shortness of breath as well as sweating. Currently the patient still having chest discomfort around 4-5/10 in intensity's. The EKG showed sinus rhythm with T-wave inversion in the inferior leads seems to be the same as the EKG in April 2017. 3 sets of cardiac enzymes came in to be unremarkable. Please note that the patient does have severe arthritis all over his body. Past Medical History Past Medical History: Coronary Artery Disease (CAD), Heart Failure, CVA/TIA, Hyperlipidemia, Hypertension, Osteoarthritis (OA) Additional Past Medical History / Comment(s): Parkinsons, acid reflux, Hard of hearing. TIA Uses cane for ambulation. History of Any Multi-Drug Resistant Organisms: MRSA Date of last positivie culture/infection: 2006 MDRO Source:: Lower back Past Surgical History: Back Surgery, Heart Catheterization With Stent Additional Past Surgical History / Comment(s): artifical knee 2006. Past Anesthesia/Blood Transfusion Reactions: No Reported Reaction Date of Last Stent Placement:: April 2013 Past Psychological History: Anxiety, Depression Smoking Status: Never smoker Past Alcohol Use History: Occasional Past Drug Use History: None Reported - Past Family History Mother Family Medical History: No Reported History Father Family Medical History: Congestive Heart Failure (CHF) Medications and Allergies Home Medications Medication Instructions Recorded Confirmed Type Carbidopa/Levodopa [Carbidopa-Levo 1 tab PO QID 08/23/13 05/19/17 History ER 50-200 Tab] Metoprolol Tartrate [Lopressor] 12.5 mg PO BID 08/23/13 05/19/17 History Multivitamin [Men's Multi-Vitamin] 1 tab PO DAILY 08/23/13 05/19/17 History Nitroglycerin Sl Tabs [Nitrostat] 0.4 mg SUBLINGUAL Q5M PRN 08/23/13 05/19/17 History Omeprazole [PriLOSEC] 40 mg PO BID 08/23/13 05/19/17 History Pramipexole [Mirapex] 0.5 mg PO TID 08/23/13 05/19/17 History Sucralfate [Carafate] 1 gm PO DAILY PRN 10/06/16 05/19/17 History Atorvastatin [Lipitor] 40 mg PO HS #30 tab 10/07/16 05/19/17 Rx Sennosides-Docusate Sodium 1 tab PO DAILY #1 tablet 10/07/16 05/19/17 Rx [Senokot-S] Artificial Tears-Hypromellose 1 drop BOTH EYES QID PRN 05/19/17 05/19/17 History [Artificial Tear Drops] Aspirin 81 mg PO DAILY chew 05/19/17 Rx Aspirin EC [Ecotrin Low Dose] 81 mg PO DAILY 05/19/17 05/19/17 History FLUoxetine HCL [PROzac] 60 mg PO DAILY cap 05/19/17 Rx Ferrous Sulfate [Iron (65 MG 325 mg PO Q48H 05/19/17 05/19/17 History Elemental)] Furosemide [Lasix] 40 mg PO DAILY 05/19/17 05/19/17 History Allergies Allergy/AdvReac Type Severity Reaction Status Date / Time No Known Allergies Allergy Verified 11/02/17 01:05 Physical Exam Vitals: Vital Signs Temp Pulse Pulse Resp BP BP Pulse Ox 11/02/17 08:00 97.2 F L 74 102/56 100 11/02/17 07:00 57 L 118/72 97 11/02/17 03:20 97.9 F 12 95/60 97 11/02/17 01:43 66 18 111/68 90 L 11/02/17 01:35 97.9 F 61 12 95/60 96 11/02/17 01:01 97.8 F 84 17 123/72 96 Intake and Output 11/01/17 11/02/17 11/02/17 22:59 06:59 14:59 Intake Total 20 Output Total 300 Balance -280 Intake: Intake, IV Titration 20 Amount Nitroglycerin-D5w Pmx 50 20 mg In Dextrose/Water 1 250ml.bag @ 20 MCG/MIN 6 mls/hr IV .Q24H ONE Rx#: [id number] Output: Urine 300 Other: Voiding Method Urinal # Voids 1 Weight 90.7 kg - Constitutional General appearance: no acute distress - Respiratory Respiratory: bilateral: CTA - Cardiovascular Rhythm: regular Heart sounds: normal: S1, S2 Results 11/02/17 06:30 11/02/17 06:30 Cardiac Enzymes 11/02/17 11/02/17 11/02/17 Range/Units 01:27 06:30 06:30 AST 24 (17-59) U/L CK-MB (CK-2) 3.3 H* 2.2 (0.0-2.4) ng/mL Troponin I <0.012 <0.012 (0.000-0.034) ng/mL CBC 11/02/17 Range/Units 06:30 WBC 7.3 (3.8-10.6) k/uL RBC 4.17 L (4.30-5.90) m/uL Hgb 13.0 (13.0-17.5) gm/dL Hct 39.2 (39.0-53.0) % Plt Count 171 (150-450) k/uL Comprehensive Metabolic Panel 11/02/17 Range/Units 06:30 Sodium 140 (137-145) mmol/L Potassium 3.9 (3.5-5.1) mmol/L Chloride 105 (98-107) mmol/L Carbon Dioxide 32 H (22-30) mmol/L BUN 22 H (9-20) mg/dL Creatinine 0.90 (0.66-1.25) mg/dL Glucose 82 (74-99) mg/dL Calcium 8.8 (8.4-10.2) mg/dL AST 24 (17-59) U/L ALT 35 (21-72) U/L Alkaline Phosphatase 66 (38-126) U/L Total Protein 5.4 L (6.3-8.2) g/dL Albumin 3.2 L (3.5-5.0) g/dL Current Medications Generic Name Dose Route Start Last Admin Trade Name Freq PRN Reason Stop Dose Admin Artificial Tears 1 drops 11/02/17 04:12 Artificial Tear Drops BOTH EYES QID PRN Dry Eye(s) Aspirin 325 mg 11/03/17 09:00 Aspirin PO DAILY [facility] Atorvastatin Calcium 40 mg 11/02/17 21:00 Lipitor PO HS ONEL Carbidopa/Levodopa 1 each 11/02/17 09:00 Sinemet Er 50-200 PO QID [facility] Heparin Sodium (Porcine) 5,000 unit 11/02/17 08:00 11/02/17 08:25 Heparin SQ 5,000 unit Q8HR ONEL Administration Nitroglycerin/Dextrose 50 mg/ 250 mls @ 6 mls/hr 11/02/17 01:13 11/02/17 01: 41 IV Solution IV 11/03/17 01:12 20 mcg/min .Q24H ONE 6 mls/hr Administration Protocol 20 MCG/MIN Metoprolol Tartrate 12.5 mg 11/02/17 09:00 Lopressor PO BID ONEL Pantoprazole Sodium 40 mg 11/02/17 09:00 Protonix PO BID ONEL Senna/Docusate Sodium 1 each 11/02/17 09:00 Senokot-S PO DAILY [facility] Sucralfate 1 gm 11/02/17 04:12 Carafate PO DAILY PRN Heartburn Intake and Output 11/01/17 11/02/17 11/02/17 22:59 06:59 14:59 Intake Total 20 Output Total 300 Balance -280 Intake: Intake, IV Titration 20 Amount Nitroglycerin-D5w Pmx 50 20 mg In Dextrose/Water 1 250ml.bag @ 20 MCG/MIN 6 mls/hr IV .Q24H ONE Rx#: [id number] Output: Urine 300 Other: Voiding Method Urinal # Voids 1 Weight 90.7 kg 11/02/17 06:30 11/02/17 06:30 Assessment and Plan Assessment: Assessment #1 chest discomfort. #2 known CAD and status post LAD stenting #3 hypertension #4 dyslipidemia Plan #1 the patient was ruled out for acute coronary event. 3 sets of cardiac enzymes came in to be unremarkable #2 he underwent a stress test in April 2017 and that was unremarkable for ischemia #3 I will obtain an echocardiogram was Doppler #4 the right keep the patient comfortable in terms of the pain #5 follow-up with him. Thank you for allowing us participate in his care
[2017-11-02] MEDS: CARBIDOPA-LEVODOPA ER 50-200MG 1 EACH TABLET.ER PO SCH ×4 (08:33→21:38)
[2017-11-02] MEDS: PANTOPRAZOLE 40 MG TABLET PO SCH ×2 (08:33→21:37)
[2017-11-02] MEDS: METOPROLOL TARTRATE 12.5 MG TAB PO SCH ×2 (08:35→21:38)
[2017-11-02] MEDS ORDERED: SENNOSIDES-DOCUSATE SODIUM 1 EACH TAB PO SCH (09:00)
[2017-11-02] MEDS ORDERED: ACETAMINOPHEN TAB 325 MG TAB PO PRN (12:07)
[2017-11-02] MEDS: IBUPROFEN 600 MG TAB PO SCH (12:45)
[2017-11-02] MEDS ORDERED: NITROGLYCERIN SL TABS 0.4 MG TAB SUBLINGUAL PRN (13:05)
[2017-11-02] MEDS ORDERED: ACETAMINOPHEN TAB 500 MG TAB PO PRN (13:05)
--- NOTE | 2017-11-02 13:12 | P.PN ---
Progress Note - Text Progress Note Date: 11/02/17 Patient seen and examined, chest pain seemed to be secondary to musculoskeletal issues. We'll increase Neurontin to 300 mg 3 times a day. PT and OT.
[2017-11-02 14:14] LABS: Creatine Kinase 67 U/L (55-170)
[2017-11-02 14:27] LABS: Creatine Kinase MB 1.9 ng/mL (0.0-2.4); Troponin I <0.012 ng/mL (0.000-0.034)
[2017-11-02] MEDS ORDERED: GABAPENTIN 300 MG CAP PO SCH (16:00)
[2017-11-02] MEDS ORDERED: ATORVASTATIN 40 MG TAB PO SCH (21:00)
[2017-11-02] MEDS: MAGNESIUM OXIDE 400 MG TAB PO SCH (21:37)
[2017-11-02] MEDS: SENNOSIDES-DOCUSATE SODIUM 1 EACH TAB PO SCH (21:48)
[2017-11-02] MEDS: PRAMIPEXOLE 0.5 MG TAB PO SCH (22:28)
[2017-11-02] MEDS: GABAPENTIN 100 MG CAP PO SCH (22:29)
[2017-11-02 23:31] LABS: Cholesterol 133 mg/dL (<200); HDL Cholesterol 39 mg/dL (40-60); LDL Cholesterol,Calculated 77 mg/dL (0-99); Triglycerides 83 mg/dL (<150)
[2017-11-03 05:07] LABS: HCT 40.8 % (39.0-53.0); HGB 13.3 gm/dL (13.0-17.5); MCH 30.5 pg (25.0-35.0); MCHC 32.7 g/dL (31.0-37.0); Mean Platelet Volume 9.2; Platelet Count 146 k/uL (150-450); RBC 4.38 m/uL (4.30-5.90); RDW 13.9 % (11.5-15.5); WBC 8.6 k/uL (3.8-10.6)
[2017-11-03 05:22] LABS: Anion Gap 4 mmol/L; Blood Urea Nitrogen 23 mg/dL (9-20); Calcium 9.1 mg/dL (8.4-10.2); Carbon Dioxide 29 mmol/L (22-30); Chloride 104 mmol/L (98-107); Glucose 83 mg/dL (74-99); Potassium 4.8 mmol/L (3.5-5.1); Sodium 137 mmol/L (137-145)
[2017-11-03] MEDS: IBUPROFEN 600 MG TAB PO SCH ×3 (05:40→07:29)
[2017-11-03 05:42] VITALS: TEMP 97.7
[2017-11-03] MEDS: METOPROLOL TARTRATE 12.5 MG TAB PO SCH (08:09)
[2017-11-03] MEDS: PANTOPRAZOLE 40 MG TABLET PO SCH (08:09)
[2017-11-03] MEDS: PRAMIPEXOLE 0.5 MG TAB PO SCH (08:09)
[2017-11-03] MEDS: SENNOSIDES-DOCUSATE SODIUM 1 EACH TAB PO SCH (08:09)
[2017-11-03] MEDS: GABAPENTIN 100 MG CAP PO SCH (08:09)
[2017-11-03] MEDS: MAGNESIUM OXIDE 400 MG TAB PO SCH (08:09)
[2017-11-03] MEDS: CARBIDOPA-LEVODOPA ER 50-200MG 1 EACH TABLET.ER PO SCH (08:10)
--- NOTE | 2017-11-03 08:41 | P.PN ---
Subjective Progress Note Date: 11/03/17 Principal diagnosis: Chest discomfort/coronary artery disease This is a pleasant 72-year-old gentleman who sees Dr. Guadalupe in the office on regular basis with a past medical history significant for coronary artery disease and prior stenting of the LAD with the last heart catheterization was performed in 2013 showing patent stent in the LAD and lost a stress test was in April 2017 which was unremarkable presented to the hospital complaining of chest discomfort. The patient initially presented to [facility] with a chest discomfort and then he was transferred to [facility]. He was in his usual state of health yesterday when he was at the [employer] and he was getting into his car when he started experiencing chest discomfort, in the mid of the chest, as a sharp kind of discomfort, without any radiation to the neck or arms or shoulders but it was estimated with shortness of breath as well as sweating. Currently the patient still having chest discomfort around 4-5/10 in intensity's. The EKG showed sinus rhythm with T-wave inversion in the inferior leads seems to be the same as the EKG in April 2017. 3 sets of cardiac enzymes came in to be unremarkable. Please note that the patient does have severe arthritis all over his body. On follow-up with the patient today, he denies having any chest pain or chest discomfort but continues to have bilateral shoulder discomfort and neck discomfort. I am getting the patient up and around and if he is pain free he might be able to be discharged home. Objective - Vital Signs Vital signs: Vital Signs Temp 97.7 F 11/03/17 08:00 Pulse 69 11/03/17 08:00 Resp 18 11/03/17 08:00 BP 136/71 11/03/17 08:00 Pulse Ox 94 L 11/03/17 08:00 Intake & Output 11/02/17 11/03/17 11/03/17 18:59 06:59 18:59 Intake Total 1000 275 Output Total 825 550 Balance 175 -275 Weight 94.8 kg Intake: Oral 1000 275 Output: Urine 825 550 Other: Voiding Method Urinal Urinal # Voids 1 1 # Bowel Movements 1 1 - Constitutional General appearance: Present: no acute distress - Respiratory Respiratory: bilateral: CTA - Cardiovascular Rhythm: regular Heart sounds: normal: S1, S2 - Labs CBC & Chem 7: 11/03/17 04:18 11/03/17 04:18 Labs: Abnormal Lab Results - Last 24 Hours (Table) 11/02/17 11/03/17 11/03/17 Range/Units 06:30 04:18 04:18 Plt Count 146 L (150-450) k/uL BUN 23 H (9-20) mg/dL HDL Cholesterol 39 L (40-60) mg/dL Assessment and Plan Assessment: Assessment #1 chest discomfort. #2 known CAD and status post LAD stenting #3 hypertension #4 dyslipidemia Plan #1 the patient was ruled out for acute coronary event. 3 sets of cardiac enzymes came in to be unremarkable #2 he underwent a stress test in April 2017 and that was unremarkable for ischemia #3 from a cardiovascular standpoint of view, the patient can be discharged home. Thank you for allowing us participate in his care
[2017-11-03] MEDS ORDERED: MONTELUKAST 10 MG TAB PO SCH (09:00)
[2017-11-03] MEDS ORDERED: FLUoxetine HCL 20 MG CAP PO SCH (09:00)
[2017-11-03] MEDS ORDERED: MELOXICAM 7.5 MG TAB PO SCH (09:00)
[2017-11-03] MEDS ORDERED: DOCUSATE 100 MG CAP PO SCH (09:00)
[2017-11-03] MEDS ORDERED: ASPIRIN 325 MG TAB PO SCH (09:00)
[2017-11-03] MEDS ORDERED: FERROUS SULFATE 325 MG TAB PO SCH (09:00)
[2017-11-03] MEDS ORDERED: NON-FORMULARY DRUG (Aspirin Ec 81 MG) PO SCH (09:00)
[2017-11-03 10:02] VITALS: BP 103/69
--- NOTE | 2017-11-03 10:11 | ECHOF ---
Referral Reason:lv function/chest pain MEASUREMENTS -------- HEIGHT: 172.7 cm WEIGHT: 90.3 kg BP: 141/75 RVIDd: 2.8 cm (< 3.3) IVSd: 1.6 cm (0.6 - 1.1) LVIDd: 3.7 cm (3.9 - 5.3) LVPWd: 1.6 cm (0.6 - 1.1) IVSs: 2.1 cm LVIDs: 1.8 cm LVPWs: 1.8 cm Ao Diam: 3.1 cm (2.0 - 3.7) AV Cusp: 1.8 cm (1.5 - 2.6) LA Diam: 2.3 cm (2.7 - 3.8) MV EXCURSION: 20.477 mm (> 18.000) MV EF SLOPE: 44 mm/s (70 - 150) EPSS: 0.2 cm MV E Chris: 0.90 m/s MV DecT: 323 ms MV A Chris: 1.34 m/s MV E/A Ratio: 0.67 RAP: 5.00 mmHg RVSP: 21.75 mmHg FINDINGS -------- Sinus rhythm. This was a technically good study. The left ventricular size is normal. There is moderate concentric left ventricular hypertrophy. O verall left ventricular systolic function is normal with, an EF between 55 - 60 %. The right ventricle is normal in size and function. The left atrium is normal in size. The right atrium is normal in size. The aortic valve is trileaflet, and appears structurally normal. No aortic stenosis or regurgitation. Mild mitral regurgitation is present. There is mild mitral valve prolapse. Mild tricuspid regurgitation present. The right ventricular systolic pressure, as measured by Doppl er, is 21.75mmHg. Pulmonic valve appears structurally normal. The aortic root size is normal. The pericardium is normal. CONCLUSIONS -------- 1. Sinus rhythm. 2. This was a technically good study. 3. The left ventricular size is normal. 4. There is moderate concentric left ventricular hypertrophy. 5. Overall left ventricular systolic function is normal with, an EF between 55 - 60 %. 6. The right ventricle is normal in size and function. 7. The left atrium is normal in size. 8. The right atrium is normal in size. 9. The aortic valve is trileaflet, and appears structurally normal. No aortic stenosis or regurgitati on. 10. Mild mitral regurgitation is present. 11. There is mild mitral valve prolapse. 12. Mild tricuspid regurgitation present. 13. The right ventricular systolic pressure, as measured by Doppler, is 21.75mmHg. 14. Pulmonic valve appears structurally normal. 15. The aortic root size is normal. 16. The pericardium is normal. [employer] SUPERVISOR: Ashley Cristina RDCS
--- NOTE | 2017-11-03 10:31 | P.DS ---
Providers Date of admission: 11/02/17 01:14 Expected date of discharge: 11/03/17 Attending physician: Tip Rivera MD Consults: 11/02/17 01:00 Consult Physician Routine Consulting Provider: Momo Queen Consult Reason/Comments: chest pain Do you want consulting provider notified?: Yes Primary care physician: Physician Nonstaff Hospital Course: 72 year old male with history of CAD s/p stents was transferred to our facility from [facility] due to chest pain. The pain was sudden in onset, started after returning home the night before. Pain was across the shoulders, felted as pressure-like 10 out of 10 in severity and he reported that it was different from his arthritis pain. He took a nitro pill and tried to relax but he didn't find much relief and then ended up taking 3 more pills and called his home nurse who suggested that he goes to the ER. The chest pain was associated with some dizziness sweating and some difficulty breathing. Denied any nausea or heart racing or irregular heartbeat. He denied any fevers or chills, no coughing, abdominal pain, changes in his bowel or urinary habits. Patient was here around April of this year for similar complaint he had the negative stress test and the pain was thought to be due to mainly arthritis. He was supposed to follow up with cardiology as an outpatient to have an echo done. In the ER he was started on nitro drip, troponins were cycled and remained normal. His EKG did not reveal any acute changes. Patient was evaluated by cardiology who thought that his pain was most likely musculoskeletal. Patient was treated with some Motrin. Neurontin dose was increased from 100 mg to 300 mg 3 times a day. Patient's family reported that patient received some needle injections in his right mu-ism and that relieved his chest pain for 4 days. This indicates that he possibly has fibromyalgia component to his chronic pain. Today he was cleared by cardiology for discharge. He will be discharged home in stable condition. Discharge diagnoses Atypical chest pain Neuropathic pain Cardiac disease was ruled out Patient Condition at Discharge: Fair Plan - Discharge Summary New Discharge Prescriptions: New Acetaminophen Tab [Tylenol] 650 mg PO Q4HR PRN tab PRN Reason: pain Gabapentin [Neurontin] 300 mg PO TID #90 cap Continue Carbidopa/Levodopa [Carbidopa-Levo ER 50-200 Tab] 1 tab PO QID Pramipexole [Mirapex] 0.5 mg PO TID Nitroglycerin Sl Tabs [Nitrostat] 0.4 mg SUBLINGUAL Q5M PRN PRN Reason: Chest Pain Omeprazole [PriLOSEC] 40 mg PO BID Multivitamin [Men's Multi-Vitamin] 1 tab PO DAILY Metoprolol Tartrate [Lopressor] 12.5 mg PO BID Furosemide [Lasix] 40 mg PO DAILY Aspirin EC [Ecotrin Low Dose] 81 mg PO DAILY Ferrous Sulfate [Iron (65 MG Elemental)] 325 mg PO DAILY FLUoxetine HCL [PROzac] 60 mg PO DAILY cap Triamcinolone 0.1% Cream [Kenalog] 1 applicatio TOPICAL BID PRN PRN Reason: LESIONS Nystatin 100,000Unit/gm Cream [Mycostatin Cream] 1 applic TOPICAL TID PRN PRN Reason: YEAST INFECTION Acetaminophen Tab [Tylenol] 500 mg PO TID PRN PRN Reason: Pain Montelukast [Singulair] 10 mg PO DAILY Meloxicam [Mobic] 7.5 mg PO DAILY Magnesium Oxide [Mag-Ox] 500 mg PO BID Gabapentin [Neurontin] 100 mg PO TID Docusate [Colace] 100 mg PO DAILY Discharge Medication List Carbidopa/Levodopa [Carbidopa-Levo ER 50-200 Tab] 1 tab PO QID 08/23/13 [History ] Metoprolol Tartrate [Lopressor] 12.5 mg PO BID 08/23/13 [History] Multivitamin [Men's Multi-Vitamin] 1 tab PO DAILY 08/23/13 [History] Nitroglycerin Sl Tabs [Nitrostat] 0.4 mg SUBLINGUAL Q5M PRN 08/23/13 [History] Omeprazole [PriLOSEC] 40 mg PO BID 08/23/13 [History] Pramipexole [Mirapex] 0.5 mg PO TID 08/23/13 [History] Aspirin EC [Ecotrin Low Dose] 81 mg PO DAILY 05/19/17 [History] FLUoxetine HCL [PROzac] 60 mg PO DAILY cap 05/19/17 [Rx] Ferrous Sulfate [Iron (65 MG Elemental)] 325 mg PO DAILY 05/19/17 [History] Furosemide [Lasix] 40 mg PO DAILY 05/19/17 [History] Acetaminophen Tab [Tylenol] 500 mg PO TID PRN 11/02/17 [History] Docusate [Colace] 100 mg PO DAILY 11/02/17 [History] Gabapentin [Neurontin] 100 mg PO TID 11/02/17 [History] Magnesium Oxide [Mag-Ox] 500 mg PO BID 11/02/17 [History] Meloxicam [Mobic] 7.5 mg PO DAILY 11/02/17 [History] Montelukast [Singulair] 10 mg PO DAILY 11/02/17 [History] Nystatin 100,000Unit/gm Cream [Mycostatin Cream] 1 applic TOPICAL TID PRN [History] Triamcinolone 0.1% Cream [Kenalog] 1 applicatio TOPICAL BID PRN 11/02/17 [ History] Acetaminophen Tab [Tylenol] 650 mg PO Q4HR PRN tab 11/03/17 [Rx] Gabapentin [Neurontin] 300 mg PO TID #90 cap 11/03/17 [Rx] Follow up Appointment(s)/Referral(s): Anh Sheppard MD [STAFF PHYSICIAN] - 1 Week Patient Instructions/Handouts: Chest Pain (ED)
[2017-11-03 11:49] VITALS: PULSE 71; RESP 24
--- NOTE | 2017-11-06 09:47 | CDI ---
Last Revision, March 2017 Documentation Clarification Form Date: 11/06/17 From: Amy Remy Phone: If you have question, contact Celina [facility] [employer] Outreach Specialist at M-F 8:30 am to 6pm Admit Date: 11/02/2017 1:14:00 AM Patient Name: Red Ross Visit Number: [id number] Discharge Date: 11/03/17 ATTENTION: The Clinical Documentation Specialists (CDI) and [facility] Coding Staff appreciate your assistance in clarifying documentation. Please respond to the clarification below the line at the bottom and electronically sign. The CDI & [facility] C[facility] staff will review the response and follow-up if needed. Please note: Queries are made part of the Legal Health Record. If you have any questions, please contact the author of this message via ITS. Dr. Darrian Burns Mr. Ross has a history of congestive heart failure. He is on 40mg PO of Lasix daily at home. Echocardiogram Results (11/03/17): Overall left ventricular systolic function is normal with an EF of between 55-60%. There is moderate left ventricular hypertrophy. In your professional opinion, can you please clarify the type of CHF if known? Systolic Heart Failure: Chronic Diastolic Heart Failure: Chronic Systolic & Diastolic Heart Failure: Chronic Unable to Determine Other, please specify Diastolic CHF, chronic MTDD
== END 2017-11-03 12:25 | disposition home or self-care (01) | DRG 313 ==
LOC: EC 00:57 → 6ICU 01:14
PROVIDERS: ADMIT Internal Medicine; ATTEND Internal Medicine
DX: R07.89 Other chest pain (principal); I50.32 Chronic diastolic (congestive) heart failure; I25.10 Atherosclerotic heart disease of native coronary artery without angina pectoris; K21.9 Gastro-esophageal reflux disease without esophagitis; E78.5 Hyperlipidemia, unspecified; F32.9 Major depressive disorder, single episode, unspecified; F41.9 Anxiety disorder, unspecified; G20 Parkinson's disease; G25.81 Restless legs syndrome; G89.29 Other chronic pain; H91.90 Unspecified hearing loss, unspecified ear; Z86.14 Personal history of Methicillin resistant Staphylococcus aureus infection; Z95.5 Presence of coronary angioplasty implant and graft; Z79.899 Other long term (current) drug therapy; Z79.82 Long term (current) use of aspirin
CPT/HCPCS: 80048; 80053; 80061; 82550; 82553; 84484; 85025; 85027; 93306; 96365; 96366; 99285

== ENCOUNTER → 2018-05-15 | Day surgery (SDC) | payer MEDICARE ==
[~2018-05-15] MED LIST: ALPRAZolam 0.25 MG TAB PO PRN; ASPIRIN 325 MG TAB PO ONE; IOPAMIDOL-370 125ML BTL INJ ONE; LIDOCAINE 1% INJ 10MG/ML (20 ML MDV) ONE; LIDOCAINE 1% INJ 10MG/ML (20 ML MDV) SQ ONE; MIDAZOLAM 2 MG/2 ML VIAL IV ONE; RX INFO: IV CONTRAST WAS GIVEN 1 EACH MISC MISCELLANE PRN; SODIUM CHLORIDE 0.9% 1,000 ML IV SCH; SODIUM CHLORIDE 0.9% 1,000 ML in EMPTY BAG 1 BAG IV ONE
[2018-05-15 06:59] VITALS: RESP 18; TEMP 97.7
--- NOTE | 2018-05-15 08:46 | HP ---
HISTORY AND PHYSICAL Red is a 73-year-old gentleman with history of parkinsonism, hypertension, dyslipidemia, coronary artery disease, status post prior angioplasty, who presented to me with symptoms of pericardial chest pain. He describes it as intermittent episodes of chest pressure that are sometimes associated with diaphoresis. They radiate to his left arm, but patient also has musculoskeletal chest pain related to his underlying neurological illness. He underwent a stress test that showed ischemia involving mid anterior wall due to which I advised him to undergo cardiac catheterization. He had been explained of risks, benefits and alternatives, understood and accepted. CURRENT MEDICATIONS: The patient's current medications are as charted. They are documented in the system. ALLERGIES: Allergies are as charted. FAMILY HISTORY: Family history is negative for premature coronary artery disease. SOCIAL HISTORY: Negative for smoking, EtOH abuse or drug abuse. REVIEW OF SYSTEMS: Twelve out of twelve system review has been performed. Pertinences are as documented. PHYSICAL EXAMINATION: On exam, patient is comfortable at rest. Vital signs are stable. Chest exam reveals good air entry bilaterally. Heart exam reveals first and second heart sounds. No gallop. Has an ejection systolic murmur in the aortic area. Abdomen is soft. Examination of the extremities did not reveal any edema. Peripheral pulses are felt. Stress test shows ischemia in LAD distribution. ASSESSMENT: Chest pain with abnormal stress test in a patient with known coronary artery disease, status post prior angioplasty. PLAN: Patient will undergo cardiac catheterization with a view to performing angioplasty. He had been explained of risks, benefits and alternatives. MMODL / IJN: [id number] /
--- NOTE | 2018-05-15 08:49 | CC ---
CARDIAC CATHETERIZATION REPORT INDICATION: Chest pain with abnormal stress test. PROCEDURE NOTE: After obtaining informed consent, left heart catheterization and coronary angiogram were performed via the right femoral artery using standard Nghia catheters. The patient has a short left main coronary artery. Hence, I tried a 3.5 size Nghia catheter and subsequently a size 4 Nghia catheter and obtained optimal information. The patient received moderate conscious sedation and total sedation time was 22 minutes. FINDINGS: 1. HEMODYNAMICS: Left ventricular end-diastolic pressure is 12 to 14 mm. There is no significant gradient across the aortic valve. 2. LEFT VENTRICULOGRAM: Left ventriculogram is not performed. 3. ANGIOGRAPHIC DATA: Left Main Coronary Artery: Left main coronary artery is a short vessel and is free of stenosis. Divides into left anterior descending coronary artery and circumflex coronary artery. LAD: Its previously stented segment appears patent. There is mild nonobstructive disease noted. Circumflex coronary artery is a large dominant vessel and is free of significant disease. Right coronary artery is a small nondominant vessel that is free of significant disease. CONCLUSION: Mild nonobstructive disease involving left anterior descending artery. PLAN: I reviewed the cardiac catheterization findings with the patient and told him that his chest pain is probably noncardiac in origin and the stress test is probably a false- positive stress test. His management is going to be in the form of risk factor modification and continued medical therapy. MMODL / IJN: [id number] /
[2018-05-15 13:21] VITALS: BP 116/70; PULSE 64
== END ==
LOC: CATHCVL 06:03
PROVIDERS: ATTEND Internal Medicine Cardiovascular Disease
DX: I25.10 Atherosclerotic heart disease of native coronary artery without angina pectoris (principal); I10 Essential (primary) hypertension; I34.0 Nonrheumatic mitral (valve) insufficiency; Z95.5 Presence of coronary angioplasty implant and graft; E78.5 Hyperlipidemia, unspecified; G20 Parkinson's disease; E78.2 Mixed hyperlipidemia; Z79.82 Long term (current) use of aspirin; Z79.899 Other long term (current) drug therapy
CPT/HCPCS: 93458; C1760; C1894; C1769; J2250; J2001; Q9967

== ENCOUNTER 2018-10-18 23:33 | Inpatient (IN) | payer MEDICARE ==
[2018-10-19] MEDS ORDERED: ACETAMINOPHEN TAB 325 MG TAB PO PRN (00:36)
[2018-10-19] MEDS ORDERED: NALOXONE 0.4 MG/ML 1 ML VIAL IV PRN (00:36)
[2018-10-19] MEDS ORDERED: IBUPROFEN 400 MG TAB PO PRN (00:36)
--- NOTE | 2018-10-19 00:53 | ED ---
General Adult HPI - General Chief complaint: Extremity Injury, Lower Stated complaint: Sepsis Source: patient Mode of arrival: ambulatory Limitations: no limitations - History of Present Illness Initial comments: Red is a 73-year-old gentleman who presents the emergency department via EMS as a transfer from an outside facility for further evaluation of possible sepsis. Patient noticed redness of his lower extremities earlier in the week he had does have a history of recurrent cellulitis due to lymphedema. He was evaluated by physician on Friday and prescribed Keflex which he has been compliant with, on he noticed it was worsening so he was reevaluated and was prescribed Bactrim which she has been compliant with. Despite being on 2 antibiotics the patient is noted that the redness in his lower extremities continues to worsen. Today he was feeling unwell, weak, subjective fever and noticed worsening of his leg so he went to the emergency department where he is found to be tachycardic with a heart rate in the 110s, hypoxic with oxygen saturation of 87%, afebrile but was feeling unwell. Full workup was initiated and it was found that he had leukocytosis with a white count of 23, he was given a 500 mL normal saline bolus and a dose of Zosyn. His d-dimer was noted to be significantly elevated and a CTA was ordered due to the history of tachycardia and hypoxia however the CTA of the chest was negative for any acute pulmonary embolism. Decision was made to transfer the patient to our ER for further evaluation and admission to hospital. - Related Data Home Medications Medication Instructions Recorded Confirmed Carbidopa/Levodopa [Carbidopa-Levo 1 tab PO QID 08/23/13 05/15/18 ER 50-200 Tab] Metoprolol Tartrate [Lopressor] 12.5 mg PO BID 08/23/13 05/15/18 Multivitamin [Men's Multi-Vitamin] 1 tab PO DAILY 08/23/13 05/15/18 Nitroglycerin Sl Tabs [Nitrostat] 0.4 mg SUBLINGUAL Q5M PRN 08/23/13 05/15/18 Omeprazole [PriLOSEC] 40 mg PO BID 08/23/13 05/15/18 Pramipexole [Mirapex] 0.5 mg PO TID 08/23/13 05/15/18 Aspirin EC [Ecotrin Low Dose] 81 mg PO DAILY 05/19/17 05/15/18 Ferrous Sulfate [Iron (65 MG 325 mg PO DAILY 05/19/17 05/15/18 Elemental)] Furosemide [Lasix] 40 mg PO DAILY 05/19/17 05/15/18 Acetaminophen Tab [Tylenol] 500 mg PO TID PRN 11/02/17 05/15/18 Docusate [Colace] 100 mg PO DAILY 11/02/17 05/15/18 Gabapentin [Neurontin] 100 mg PO TID 11/02/17 05/15/18 Magnesium Oxide [Mag-Ox] 500 mg PO BID 11/02/17 05/15/18 Meloxicam [Mobic] 7.5 mg PO DAILY 11/02/17 05/15/18 Montelukast [Singulair] 10 mg PO DAILY 11/02/17 05/15/18 Nystatin 100,000Unit/gm Cream 1 applic TOPICAL TID PRN 11/02/17 05/15/18 [Mycostatin Cream] Triamcinolone 0.1% Cream [Kenalog 1 applicatio TOPICAL BID PRN 11/02/17 05/15/18 0.1% Cream] Atorvastatin [Lipitor] 40 mg PO DAILY 05/15/18 05/15/18 Isosorbide Mononitrate [Isosorbide 30 mg PO DAILY 05/15/18 05/15/18 Mononitrate ER] Previous Rx's Medication Instructions Recorded FLUoxetine HCL [PROzac] 60 mg PO DAILY cap 05/19/17 Acetaminophen Tab [Tylenol] 650 mg PO Q4HR PRN tab 11/03/17 Allergies Allergy/AdvReac Type Severity Reaction Status Date / Time No Known Allergies Allergy Verified 10/19/18 00:11 Review of Systems ROS Statement: Those systems with pertinent positive or pertinent negative responses have been documented in the HPI. ROS Other: All systems not noted in ROS Statement are negative. Past Medical History Past Medical History: Coronary Artery Disease (CAD), Heart Failure, CVA/TIA, Hyperlipidemia, Hypertension, Osteoarthritis (OA) Additional Past Medical History / Comment(s): Parkinsons, acid reflux, Hard of hearing. TIA Uses cane for ambulation. History of Any Multi-Drug Resistant Organisms: MRSA Date of last positivie culture/infection: 2006 MDRO Source:: Lower back Past Surgical History: Back Surgery, Heart Catheterization With Stent Additional Past Surgical History / Comment(s): artifical knee 2007. Past Anesthesia/Blood Transfusion Reactions: No Reported Reaction Date of Last Stent Placement:: April 2013 Past Psychological History: Anxiety, Depression Smoking Status: Never smoker Past Alcohol Use History: Occasional Past Drug Use History: None Reported - Past Family History Mother Family Medical History: No Reported History Father Family Medical History: Congestive Heart Failure (CHF) General Exam - General Exam Comments Initial Comments: Physical Exam GENERAL: Patient is well-developed and well-nourished. Patient is nontoxic and well-hydrated and is in no distress. HENT: Normocephalic, Atraumatic. EYES: PERRL, EOMI PULMONARY: Unlabored respirations. No audible rales rhonchi or wheezing was noted. CARDIOVASCULAR: There is a regular rate and rhythm without any murmurs gallops or rubs. Warm and well perfused extremities 2+ pitting edema bilateral lower extremities ABDOMEN: Soft and nontender with normal bowel sounds. SKIN: Lateral lower extremity erythema Right lower extremity has circumferential erythema with petechia to just below the knee Left lower extremity has erythema and petechia to the mid calf : Normal external genitalia NEUROLOGIC: Patient is alert and oriented x3. Moving all extremities spontaneously Tremor at baseline MUSCULOSKELETAL: Normal extremities with adequate strength and full range of motion. No lower extremity swelling or edema. No calf tenderness. PSYCHIATRIC: Normal psychiatric evaluation Limitations: no limitations Course Vital Signs 10/19/18 10/19/18 10/19/18 00:09 00:54 01:04 Temperature 98.9 F Pulse Rate 98 78 90 Respiratory 20 16 19 Rate Blood Pressure 159/94 93/62 114/68 O2 Sat by Pulse 96 100 94 L Oximetry Medical Decision Making - Medical Decision Making Patient care was discussed with transferring physician Patient being transferred for sepsis secondary to cellulitis In addition patient was noted to be hypoxic and tachycardic on arrival to outside ER - PE study negative Patient received IVF and Zosyn prior to transfer Repeat labs ordered here Patient hemodynamically stable Patient to be admitte to [facility] for sepsis secondary to cellulitis - Lab Data Result diagrams: 10/19/18 00:27 10/19/18 00:27 Lab Results 10/19/18 10/19/18 10/19/18 Range/Units 00:27 00:27 00:27 WBC 22.1 H (3.8-10.6) k/uL RBC 4.52 (4.30-5.90) m/uL Hgb 13.6 (13.0-17.5) gm/dL Hct 42.5 (39.0-53.0) % MCV 94.0 (80.0-100.0) fL MCH 30.0 (25.0-35.0) pg MCHC 31.9 (31.0-37.0) g/dL RDW 13.5 (11.5-15.5) % Plt Count 188 (150-450) k/uL Neutrophils % 88 % Lymphocytes % 6 % Monocytes % 4 % Eosinophils % 0 % Basophils % 0 % Neutrophils # 19.4 H (1.3-7.7) k/uL Lymphocytes # 1.4 (1.0-4.8) k/uL Monocytes # 0.9 (0-1.0) k/uL Eosinophils # 0.1 (0-0.7) k/uL Basophils # 0.0 (0-0.2) k/uL PT (9.0-12.0) sec INR (<1.2) APTT (22.0-30.0) sec Sodium 138 (137-145) mmol/L Potassium 4.4 (3.5-5.1) mmol/L Chloride 104 (98-107) mmol/L Carbon Dioxide 24 (22-30) mmol/L Anion Gap 10 mmol/L BUN 26 H (9-20) mg/dL Creatinine 0.89 (0.66-1.25) mg/dL Est GFR (CKD-EPI)AfAm >90 (>60 ml/min/1.73 sqM) Est GFR (CKD-EPI)NonAf 86 (>60 ml/min/1.73 sqM) Glucose 97 (74-99) mg/dL Plasma Lactic Acid Adan 1.7 (0.7-2.0) mmol/L Calcium 9.2 (8.4-10.2) mg/dL Total Bilirubin 1.1 (0.2-1.3) mg/dL AST 72 H (17-59) U/L ALT 15 L (21-72) U/L Alkaline Phosphatase 110 (38-126) U/L Total Protein 6.5 (6.3-8.2) g/dL Albumin 3.8 (3.5-5.0) g/dL 10/19/18 Range/Units 00:27 WBC (3.8-10.6) k/uL RBC (4.30-5.90) m/uL Hgb (13.0-17.5) gm/dL Hct (39.0-53.0) % MCV (80.0-100.0) fL MCH (25.0-35.0) pg MCHC (31.0-37.0) g/dL RDW (11.5-15.5) % Plt Count (150-450) k/uL Neutrophils % % Lymphocytes % % Monocytes % % Eosinophils % % Basophils % % Neutrophils # (1.3-7.7) k/uL Lymphocytes # (1.0-4.8) k/uL Monocytes # (0-1.0) k/uL Eosinophils # (0-0.7) k/uL Basophils # (0-0.2) k/uL PT 10.3 (9.0-12.0) sec INR 1.0 (<1.2) APTT 22.4 (22.0-30.0) sec Sodium (137-145) mmol/L Potassium (3.5-5.1) mmol/L Chloride (98-107) mmol/L Carbon Dioxide (22-30) mmol/L Anion Gap mmol/L BUN (9-20) mg/dL Creatinine (0.66-1.25) mg/dL Est GFR (CKD-EPI)AfAm (>60 ml/min/1.73 sqM) Est GFR (CKD-EPI)NonAf (>60 ml/min/1.73 sqM) Glucose (74-99) mg/dL Plasma Lactic Acid Adan (0.7-2.0) mmol/L Calcium (8.4-10.2) mg/dL Total Bilirubin (0.2-1.3) mg/dL AST (17-59) U/L ALT (21-72) U/L Alkaline Phosphatase (38-126) U/L Total Protein (6.3-8.2) g/dL Albumin (3.5-5.0) g/dL Disposition Clinical Impression: Sepsis, Cellulitis Disposition: ADMITTED IP TO THIS HOSP Condition: Stable
[2018-10-19 01:07] LABS: Basophils % (A) 0 %; Eosinophils # (A) 0.1 k/uL (0-0.7); Eosinophils % (A) 0 %; HCT 42.5 % (39.0-53.0); HGB 13.6 gm/dL (13.0-17.5); Lymphocytes # (A) 1.4 k/uL (1.0-4.8); Lymphocytes % (A) 6 %; MCHC 31.9 g/dL (31.0-37.0); Mean Platelet Volume 8.1; Monocytes # (A) 0.9 k/uL (0-1.0); Monocytes % (A) 4 %; Neutrophils # (A) 19.4 k/uL (1.3-7.7); Neutrophils % (A) 88 %; Platelet Count 188 k/uL (150-450); RBC 4.52 m/uL (4.30-5.90); RDW 13.5 % (11.5-15.5); WBC 22.1 k/uL (3.8-10.6)
[2018-10-19] MEDS: SODIUM CHLORIDE 0.9% 1,000 ML IV SCH ×2 (01:09→17:14)
[2018-10-19 01:20] LABS: Partial Thromboplastin Time 22.4 sec (22.0-30.0); Prothrombin Time 10.3 sec (9.0-12.0)
[2018-10-19 01:22] LABS: ALT 15 U/L (21-72); AST 72 U/L (17-59); African American GFR (CKD) >90 (>60 ml/min/1.73 sqM); Albumin 3.8 g/dL (3.5-5.0); Alkaline Phosphatase 110 U/L (38-126); Anion Gap 10 mmol/L; Blood Urea Nitrogen 26 mg/dL (9-20); Calcium 9.2 mg/dL (8.4-10.2); Carbon Dioxide 24 mmol/L (22-30); Chloride 104 mmol/L (98-107); Glucose 97 mg/dL (74-99); Potassium 4.4 mmol/L (3.5-5.1); Sodium 138 mmol/L (137-145); Total Bilirubin 1.1 mg/dL (0.2-1.3); Total Protein 6.5 g/dL (6.3-8.2)
[2018-10-19] MEDS ORDERED: VANCOMYCIN IV PER PHARMACY 1 EACH MISC MISCELLANE PRN (04:05)
[2018-10-19] MEDS: VANCOMYCIN 1,750 MG in SODIUM CHLORIDE 0.9% 500 ML 500 ML IVPB SCH ×2 (05:19→17:50)
[2018-10-19] MEDS: HEPARIN SODIUM,PORCINE 5,000 UNIT/ML 1 ML VIAL SQ SCH ×3 (07:06→23:47)
[2018-10-19] MEDS ORDERED: Acetaminophen-Codeine 300-30mg TAB PO PRN (16:16)
[2018-10-19] MEDS ORDERED: NYSTATIN 100,000UNIT/GM CREAM 30 GM TUBE TOPICAL PRN (16:16)
[2018-10-19] MEDS ORDERED: TEMAZEPAM 15 MG CAP PO PRN (16:18)
[2018-10-19] MEDS: POLYETHYLENE GLYCOL 3350 17 GM POWD.PACK PO SCH (17:13)
[2018-10-19] MEDS: PANTOPRAZOLE 40 MG TABLET PO SCH (17:50)
[2018-10-19] MEDS: CARBIDOPA-LEVODOPA ER 50-200MG 1 EACH TABLET.ER PO SCH ×2 (17:51→21:23)
--- NOTE | 2018-10-19 18:27 | HP ---
HISTORY AND PHYSICAL DATE OF SERVICE: 10/19/2018 CHIEF COMPLAINTS: Extremity injury and sepsis. HISTORY OF PRESENT ILLNESS: This 73-year-old gentleman with a past medical history of multiple medical problems including CAD, history of CHF, CVA, TIA, hypertension, hyperlipidemia, history of DJD, history of Parkinson's, GERD, history of CAD/stent being followed by primary physician in the [place] area was noted to have extremity injury. The patient had redness of the lower extremities earlier this week, mainly on the right more the left. The patient also had lymphedema also. The patient was given Bactrim, 2 antibiotics, the redness was worsening and the patient came to [facility]. The patient transferred to [facility] and admitted for further evaluation and treatment. Patient tachycardic and hypoxia. Sepsis was suspected and the patient will be admitted for further evaluation and treatment. After admission, the white count was found to be 22.1 and AST was 72. There is no history of fever, rigors or chills. No history of headache, loss of consciousness or seizures. PAST MEDICAL HISTORY: CAD, history of CHF, CVA, TIA, hypertension, hyperlipidemia, history of DJD, Parkinson's, history of CAD/stent, anxiety, depression. MEDICATIONS: Prior to admission home medications are: 1. Mirapex 0.5 mg p.o. b.i.d. 2. Prilosec 40 mg p.o. b.i.d. 3. Mycostatin 1 application t.i.d. p.r.n. 4. Singular 10 mg q.h.s. 5. Lopressor 12.5 mg b.i.d. 6. Mobic 7.5 p.o. daily. 7. Lipitor 40 mg q.h.s. 8. Xylocaine 1 application p.r.n. 9. Imdur ER 30 mg p.o. daily. 10.Neurontin 100 mg p.o. t.i.d. 11.Lasix 40 mg p.o. daily. 12.Fluoxetine 40 mg p.o. daily. 13.Colace 100 mg p.o. daily. 14.Cymbalta 60 mg p.o. daily. 15.Carbidopa/L-dopa 50/200 p.o. b.i.d. 16.Bactrim DS 1 p.o. b.i.d. 17.Ecotrin 81 mg. 18.Tylenol #3, 1 tab b.i.d. p.r.n. 19.Tylenol 320 mg t.i.d. p.r.n. ALLERGIES: None. FAMILY HISTORY: No history of heart disease or strokes in the family. SOCIAL HISTORY: No history of smoking. Occasional alcohol intake. REVIEW OF SYSTEMS: ENT: No diminished vision. No diminished hearing. Cardio system: No angina or palpitations. RESPIRATION: As mentioned earlier. GI no nausea or vomiting. no dysuria or hematuria. NERVOUS SYSTEM: No numbness or weakness. ALLERGY/IMMUNOLOGY: No asthma or hayfever. MUSCULOSKELETAL: As mentioned earlier. HEMATOLOGY/ONCOLOGY: No history of anemia. ENDOCRINE: As mentioned earlier. CONSTITUTIONAL: As mentioned earlier. DERMATOLOGY: As mentioned earlier. RHEUMATOLOGY negative. PSYCHIATRY as mentioned earlier. PHYSICAL EXAMINATION: Alert and oriented times three. Pulse is 95, blood pressure 150/80, respiration 16, temperature 97.9, pulse ox 97% on 2 L. HEENT: Conjunctivae normal. Oral mucosa moist. NECK is no jugular venous distention. No carotid bruit. No lymph node enlargement. CARDIOVASCULAR: S1-S2 muffled. No S3, no S4. RESPIRATIONS: Breath sounds diminished in the bases. A few scattered rhonchi. ABDOMEN: Soft, obese, nontender. LEGS: Erythematous, tender and swollen and also bluish discoloration, purplish discoloration, right more the left. NERVOUS SYSTEM: Higher functions as mentioned earlier. Moves all four extremities. No focal deficits.. LYMPHATICS: No lymph nodes palpable in the neck, axilla or groin. SKIN as mentioned earlier. LAB STUDIES: WBC 20.1, hemoglobin 13.6, sodium 130, potassium 4.1, AST/ALT noted. ASSESSMENT: 1. Acute bilateral leg cellulitis, right more the left with possible sepsis present on admission. 2. Increased WBC. 3. Failure of outpatient treatment. 4. Increased AST. 5. History of coronary artery disease. 6. History of congestive heart failure. 7. History of cerebrovascular accident, transient ischemic attack. 8. Hypertension. 9. Hyperlipidemia. 10.History of degenerative joint disease. 11.History of Parkinson's. 12.History of gastroesophageal reflux disease. 13.History of back pain. 14.History of Coronary artery disease, stent. 15.History of anxiety/depression. RECOMMENDATIONS AND DISCUSSION: In this 73-year-old gentleman who presented with multiple medical issues, at this time, I recommend to continue current medications, continue with monitoring, management and symptomatic treatment. Otherwise, at this time, I recommend continue with broad- spectrum IV antibiotics. The patient is on vancomycin. Resume the home medications. Infectious disease evaluation. Guarded prognosis because of multiple complex medical issues. Further recommendations to follow. MMODL / IJN: [id number] /
[2018-10-19] MEDS: GABAPENTIN 100 MG CAP PO SCH (21:22)
[2018-10-19] MEDS: METOPROLOL TARTRATE 12.5 MG TAB PO SCH (21:22)
[2018-10-19] MEDS: ATORVASTATIN 40 MG TAB PO SCH (21:22)
[2018-10-19] MEDS: MONTELUKAST 10 MG TAB PO SCH (21:22)
[2018-10-19] MEDS: PRAMIPEXOLE 0.5 MG TAB PO SCH (21:23)
[2018-10-19] MEDS: LIDOCAINE 5% OINTMENT 50 GM JAR TOPICAL SCH (21:23)
--- NOTE | 2018-10-20 00:04 | P.CONS ---
History of Present Illness - Reason for Consult Consult date: 10/19/18 Bilateral lower extremity cellulitis and sepsis Requesting physician: Harley Rao - Chief Complaint Bilateral leg swelling and redness x 1 week - History of Present Illness Patient is a 73-year-old male with a past medical history significant for recurrent bilateral lower extremity cellulitis patient started having problem with the swelling and redness more marked in the right leg about a week ago for the patient had been evaluated by his primary care physician and was started on oral Keflex despite taking the Keflex for a few days the patient did have improvement subsequently Bactrim DS was added to his antibiotic regimen however the patient continued to be not feeling well and presented to [facility] ER the symptoms patient was noticed to be slightly hypoxic tachycardic patient did have a CT angiogram that was negative for PE with concer n for possible sepsis the patient did received a dose of Zosyn and subsequently has been transferred to [facility] ER for further evaluation of the same patient noticed to have elevated white count 23,000 or here the patient was started on vancomycin and infectious disease was consulted for further recommendation regarding antibiotic therapy, patient be complaining of diffuse swelling and redness more marked in the right leg patient be complaining of some dull aching pain to the right leg intensity is about 5-6 out of 10 and no radiation patient currently with no open wounds to the leg or any purulent drainage; of some chills but no high-grade fever has been recorded. Review of Systems CONSTITUTIONAL: Positive for weakness. chills but denies high-grade Fever EYES: No complaint. ENT:No complaint. RESPIRATORY: Shortness of breath. CARDIOVASCULAR: No complaint. GENITOURINARY: No complaint. GASTROINTESTINAL: No complaint. MUSCULOSKELETAL: No complaint. INTEGUMENTARY: As per history of present illness. PSYCHOLOGICAL: No complaint. ENDOCRINE: No complaint. NEUROLOGIC: No complaint. Past Medical History Past Medical History: Coronary Artery Disease (CAD), Heart Failure, CVA/TIA, Hyperlipidemia, Hypertension, Osteoarthritis (OA) Additional Past Medical History / Comment(s): Parkinsons, acid reflux, Hard of hearing. TIA Uses cane for ambulation. History of Any Multi-Drug Resistant Organisms: MRSA Year Discovered:: 2006 MDRO Source:: Lower back Past Surgical History: Back Surgery, Heart Catheterization With Stent Additional Past Surgical History / Comment(s): artifical knee 2006. Past Anesthesia/Blood Transfusion Reactions: No Reported Reaction Date of Last Stent Placement:: April 2013 Past Psychological History: Anxiety, Depression Smoking Status: Never smoker Past Alcohol Use History: Occasional Past Drug Use History: None Reported - Past Family History Mother Family Medical History: No Reported History Father Family Medical History: Congestive Heart Failure (CHF) Medications and Allergies Home Medications Medication Instructions Recorded Confirmed Type Carbidopa/Levodopa [Carbidopa-Levo 1 tab PO QID 08/23/13 10/19/18 History ER 50-200 Tab] Metoprolol Tartrate [Lopressor] 12.5 mg PO BID 08/23/13 10/19/18 History Omeprazole [PriLOSEC] 40 mg PO BID 08/23/13 10/19/18 History Pramipexole [Mirapex] 0.5 mg PO BID 08/23/13 10/19/18 History Aspirin EC [Ecotrin Low Dose] 81 mg PO DAILY 05/19/17 10/19/18 History Furosemide [Lasix] 40 mg PO DAILY 05/19/17 10/19/18 History Docusate [Colace] 100 mg PO DAILY 11/02/17 10/19/18 History Gabapentin [Neurontin] 100 mg PO TID 11/02/17 10/19/18 History Meloxicam [Mobic] 7.5 mg PO DAILY 11/02/17 10/19/18 History Montelukast [Singulair] 10 mg PO HS 11/02/17 10/19/18 History Nystatin 100,000Unit/gm Cream 1 applic TOPICAL TID PRN 11/02/17 10/19/18 History [Mycostatin Cream] Isosorbide Mononitrate [Isosorbide 30 mg PO DAILY 05/15/18 10/19/18 History Mononitrate ER] Acetaminophen [Tylenol] 325 mg PO TID PRN 10/19/18 10/19/18 History Acetaminophen-Codeine 300-30mg 1 tab PO Q12H PRN 10/19/18 10/19/18 History [Tylenol w/codeine #3] Atorvastatin [Lipitor] 40 mg PO HS 10/19/18 10/19/18 History DULoxetine HCL [Cymbalta] 60 mg PO DAILY 10/19/18 10/19/18 History FLUoxetine HCL 40 mg PO DAILY 10/19/18 10/19/18 History Lidocaine 5% Oint [Xylocaine 5% 1 applic TOPICAL DIRECTED 10/19/18 10/19/18 History Oint] Sulfamethoxazole/Trimethoprim 1 tab PO BID 10/19/18 10/19/18 History [Bactrim DS 800-160 mg] Allergies Allergy/AdvReac Type Severity Reaction Status Date / Time No Known Allergies Allergy Verified 10/19/18 07:50 Physical Exam Vitals: Vital Signs Temp Pulse Pulse Resp BP BP Pulse Ox 10/19/18 15:00 97.6 F 94 16 167/103 98 10/19/18 07:00 97.9 F 95 16 155/88 97 10/19/18 02:19 98.7 F 88 18 144/80 95 10/19/18 01:04 90 19 114/68 94 L 10/19/18 00:54 78 16 93/62 100 10/19/18 00:09 98.9 F 98 20 159/94 96 Intake and Output 10/19/18 10/19/18 10/19/18 06:59 14:59 22:59 Intake Total 976 Output Total 100 Balance 876 Intake: Intake, IV Titration 500 Amount Vancomycin 1,750 mg In 500 Sodium Chloride 0.9% 500 ml 500 ml @ 167 mls/hr IVPB Q12H [facility] Rx#: [id number] Oral 476 Output: Urine 100 Other: Voiding Method Toilet Urinal # Voids 1 3 # Bowel Movements 1 Weight 90.718 kg GENERAL DESCRIPTION: An elderly male up in the chair, no distress. No tachypnea or accessory muscle of respiration use. HEENT: Shows Pallor , no scleral icterus. Oral mucous membrane is dry. No pharyngeal erythema or thrush NECK: Trachea central, no thyromegaly. LUNGS: Unlabored breathing. Clear to auscultation anteriorly. No wheeze or crackle. HEART: S1, S2, regular rate and rhythm. No loud murmur ABDOMEN: Soft, no tenderness , guarding or rigidity, no organomegaly EXTREMITIES: Diffuse swelling in both legs with some erythema to the right leg but no significant warmth to touch or tenderness palpable wound or any drainage. SKIN: No rash, no masses palpable. NEUROLOGICAL: The patient is awake, alert, oriented x3, mood and affect normal Results CBC & Chem 7: 10/19/18 00:27 10/19/18 00:27 Labs: Abnormal Lab Results - Last 24 Hours (Table) 10/19/18 10/19/18 Range/Units 00:27 00:27 WBC 22.1 H (3.8-10.6) k/uL Neutrophils # 19.4 H (1.3-7.7) k/uL BUN 26 H (9-20) mg/dL AST 72 H (17-59) U/L ALT 15 L (21-72) U/L Assessment and Plan Assessment: 1-patient currently being admitted to the hospital with bilateral lower extremity swelling or redness with concern for possible cellulitis failing outpatient oral Keflex and Bactrim DS therapy in this patient who did have some erythema but no significant warmth rather his brother his leg or cold to touch and some bluish discoloration of the toes, with concern for Cellulitis as well as ischemia to the legs Plan: 1-vancomycin pharmacy to dose target trough of 15 with watching his kidney function and Vanco trough closely 2-vascular surgery evaluation to rule out ischemic component is like we will follow up on clinical condition and cultures to further adjust medication if needed Thank you for this consultation will follow this patient along with you Time with Patient: Greater than 30
[2018-10-20] MEDS: SODIUM CHLORIDE 0.9% 1,000 ML IV SCH ×2 (04:24→17:03)
[2018-10-20] MEDS: VANCOMYCIN 1,750 MG in SODIUM CHLORIDE 0.9% 500 ML 500 ML IVPB SCH ×2 (05:11→16:59)
[2018-10-20] MEDS: DOCUSATE 100 MG CAP PO SCH (07:52)
[2018-10-20] MEDS: DULoxetine HCL 60 MG CAPSULE.DR PO SCH (07:52)
[2018-10-20] MEDS: FLUoxetine HCL 20 MG CAP PO SCH (07:52)
[2018-10-20] MEDS: ISOSORBIDE MONONITRATE ER 30 MG TAB.ER.24H PO SCH (07:52)
[2018-10-20] MEDS: MELOXICAM 7.5 MG TAB PO SCH (07:52)
[2018-10-20] MEDS: HYDROcodone/APAP 5-325MG 1 EACH TAB PO PRN (07:52)
[2018-10-20] MEDS: GABAPENTIN 100 MG CAP PO SCH ×3 (07:53→22:21)
[2018-10-20] MEDS: PANTOPRAZOLE 40 MG TABLET PO SCH ×2 (07:53→17:00)
[2018-10-20] MEDS: METOPROLOL TARTRATE 12.5 MG TAB PO SCH ×2 (07:53→20:24)
[2018-10-20] MEDS: FUROSEMIDE 40 MG TAB PO SCH (07:53)
[2018-10-20] MEDS: ASPIRIN 81 MG PO SCH (07:53)
[2018-10-20] MEDS: CARBIDOPA-LEVODOPA ER 50-200MG 1 EACH TABLET.ER PO SCH ×4 (07:54→22:21)
[2018-10-20] MEDS: PRAMIPEXOLE 0.5 MG TAB PO SCH ×2 (07:54→20:23)
[2018-10-20] MEDS: HEPARIN SODIUM,PORCINE 5,000 UNIT/ML 1 ML VIAL SQ SCH ×3 (07:56→23:08)
[2018-10-20] MEDS: POLYETHYLENE GLYCOL 3350 17 GM POWD.PACK PO SCH (07:56)
[2018-10-20 09:55] LABS: Basophils % (A) 0 %; Eosinophils # (A) 0.4 k/uL (0-0.7); Eosinophils % (A) 3 %; HCT 41.4 % (39.0-53.0); HGB 13.1 gm/dL (13.0-17.5); Lymphocytes # (A) 1.5 k/uL (1.0-4.8); Lymphocytes % (A) 13 %; MCH 30.3 pg (25.0-35.0); MCHC 31.5 g/dL (31.0-37.0); MCV 96.1 fL (80.0-100.0); Mean Platelet Volume 9.2; Monocytes # (A) 0.6 k/uL (0-1.0); Monocytes % (A) 5 %; Neutrophils # (A) 9.1 k/uL (1.3-7.7); Neutrophils % (A) 77 %; Platelet Count 203 k/uL (150-450); RBC 4.31 m/uL (4.30-5.90); RDW 14.6 % (11.5-15.5); WBC 11.9 k/uL (3.8-10.6)
[2018-10-20 10:13] LABS: African American GFR (CKD) >90 (>60 ml/min/1.73 sqM); Anion Gap 9 mmol/L; Blood Urea Nitrogen 17 mg/dL (9-20); Carbon Dioxide 23 mmol/L (22-30); Chloride 107 mmol/L (98-107); Glucose 86 mg/dL (74-99); Potassium 4.4 mmol/L (3.5-5.1); Sodium 139 mmol/L (137-145)
--- NOTE | 2018-10-20 18:57 | PN ---
PROGRESS NOTE DATE OF SERVICE: 10/20/2018 This 73-year-old gentleman who was admitted with bilateral leg cellulitis, right more than the left, with possible sepsis, is being closely monitored at this time. The white count has improved to 11.9 at this time. Patient is on broad-spectrum IV antibiotics. AST is also elevated. Past medical history reviewed. REVIEW OF SYSTEMS: CARDIOVASCULAR SYSTEM: No angina, palpitations. RESPIRATORY SYSTEM: As mentioned earlier. GI: No nausea, vomiting. : No dysuria or retention. NERVOUS SYSTEM: No numbness, weakness. MUSCULOSKELETAL: As mentioned earlier. CURRENT MEDICATIONS: Reviewed. They include: 1. Tylenol 650 q.6 p.r.n. 2. Tylenol #3. 3. Kenedy p.r.n. 4. Lipitor 40 mg at bedtime. 5. Sinemet ER 50/200 p.o. q.i.d. 6. Colace 100 mg p.o. daily. 7. Cymbalta 60 mg p.o. daily. 8. Prozac 40 mg daily. 9. Lasix 40 mg p.o. daily. 10.Neurontin 100 mg p.o. t.i.d. 11.Heparin 5000 units subcutaneously q.8. 12.Motrin 400 mg q.6 p.r.n. 13.Imdur 30 mg p.o. daily. 14.Lidocaine 15.Mobic 7.5 daily. 16.Lopressor 12.5 mg b.i.d. 17.Vancomycin. 18.Singulair 10 mg at bedtime. 19.Narcan. 20.Mycostatin. 21.Protonix 40 mg. 22.Mirapex. 23.Restoril. 24.Vancomycin IV. PHYSICAL EXAMINATION: Patient is alert, oriented x3. Pulse 72, blood pressure 160/93, respiration 17, temperature 98 degrees, pulse ox 98% on 2 L. HEENT: Conjunctivae normal. Oral mucosa moist. NECK: No jugular venous distention. No carotid bruit. No lymph node enlargement. CARDIOVASCULAR SYSTEM: S1, S2 muffled. RESPIRATORY SYSTEM: Breath sounds diminished at the bases. A few scattered rhonchi. ABDOMEN: Soft, obese. LEGS: Bilateral leg cellulitis, right more than the left. NERVOUS SYSTEM: No focal deficit. LABS: Labs at this time show WBC 11.9, sodium 139, potassium 4.4. ASSESSMENT: 1. Acute bilateral leg cellulitis, right more than the left, with possible sepsis, present on admission. 2. Increased white count. 3. Failure of outpatient treatment. 4. Increased AST. 5. History of coronary artery disease. 6. History of congestive heart failure; ejection fraction unknown. 7. History of cerebrovascular accident, transient ischemic attack. 8. Hypertension. 9. Hyperlipidemia. 10.History of degenerative joint disease. 11.History of Parkinson's. 12.History of gastroesophageal reflux disease. 13.History of back pain. 14.History of coronary artery disease, stent. 15.History of anxiety, depression. RECOMMENDATIONS AND DISCUSSION: In this 73-year-old gentleman who presented with multiple medical issues, at this time we will monitor the patient closely, continue the current management, continue symptomatic treatment. Otherwise at this time I would recommend continuing with the IV antibiotics. Follow the cultures. Closely follow with multiple consultants, including Infectious Disease. The prognosis is guarded because of the multiple medical issues. Continue with DVT prophylaxis. Continue the parkinsonism medications. Guarded prognosis. Further recommendations to follow. Will repeat the labs tomorrow. MMODL / IJN: [id number] / LEATHA
[2018-10-20] MEDS: LIDOCAINE 5% OINTMENT 50 GM JAR TOPICAL SCH (20:23)
[2018-10-20] MEDS: ATORVASTATIN 40 MG TAB PO SCH (20:24)
[2018-10-20] MEDS: MONTELUKAST 10 MG TAB PO SCH (20:24)
--- NOTE | 2018-10-20 20:57 | PN ---
PROGRESS NOTE DATE OF SERVICE: 10/20/2018 REASON FOR FOLLOWUP: Bilateral lower extremity cellulitis. INTERVAL HISTORY: The patient is currently afebrile. The patient has been breathing comfortably. Denies having any chest pain or cough. Pain and swelling to the leg have improved. Currently no open wound or any drainage. No diarrhea with antibiotic therapy. PHYSICAL EXAMINATION: Blood pressure is 118/68 with a pulse of 70, temperature 97.7. He is 96% on 2 L nasal cannula. General description is an elderly male up in the chair in no distress. RESPIRATORY SYSTEM: Unlabored breathing. Clear to auscultation anteriorly. HEART: S1, S2. Regular rate and rhythm. ABDOMEN: Soft. Right leg swelling and redness have slightly decreased. LABS: White count 11.9, creatinine 0.77. DIAGNOSTIC IMPRESSION AND PLAN: Patient with bilateral lower extremity cellulitis, right greater than left, failing outpatient oral Keflex and Bactrim therapy. Patient seems to have overall improvement on vancomycin, and his white count has improved as well. To continue for another 24 hours. Hopefully finish therapy with oral antibiotics. Continue with supportive care. MMODL / IJN: [id number] /
[2018-10-21] MEDS ORDERED: VANCOMYCIN TROUGH DUE 1 EACH MISC MISCELLANE ONE (04:00)
[2018-10-21 04:33] LABS: Basophils # (A) 0.1 k/uL (0-0.2); Basophils % (A) 1 %; Eosinophils # (A) 0.4 k/uL (0-0.7); Eosinophils % (A) 4 %; HCT 38.3 % (39.0-53.0); HGB 12.3 gm/dL (13.0-17.5); Lymphocytes # (A) 1.3 k/uL (1.0-4.8); Lymphocytes % (A) 14 %; MCHC 32.2 g/dL (31.0-37.0); MCV 96.2 fL (80.0-100.0); Mean Platelet Volume 9.3; Monocytes # (A) 0.6 k/uL (0-1.0); Monocytes % (A) 6 %; Neutrophils # (A) 7.1 k/uL (1.3-7.7); Neutrophils % (A) 73 %; Platelet Count 183 k/uL (150-450); RBC 3.98 m/uL (4.30-5.90); RDW 14.3 % (11.5-15.5); WBC 9.7 k/uL (3.8-10.6)
[2018-10-21 04:44] LABS: African American GFR (CKD) >90 (>60 ml/min/1.73 sqM); Anion Gap 5 mmol/L; Blood Urea Nitrogen 20 mg/dL (9-20); Calcium 8.7 mg/dL (8.4-10.2); Carbon Dioxide 24 mmol/L (22-30); Chloride 107 mmol/L (98-107); Glucose 83 mg/dL (74-99); Potassium 4.3 mmol/L (3.5-5.1); Sodium 136 mmol/L (137-145)
[2018-10-21] MEDS: VANCOMYCIN 1,750 MG in SODIUM CHLORIDE 0.9% 500 ML 500 ML IVPB SCH (05:11)
[2018-10-21] MEDS: SODIUM CHLORIDE 0.9% 1,000 ML IV SCH ×2 (07:35→21:50)
[2018-10-21] MEDS: FUROSEMIDE 40 MG TAB PO SCH (07:36)
[2018-10-21] MEDS: DULoxetine HCL 60 MG CAPSULE.DR PO SCH (07:36)
[2018-10-21] MEDS: MELOXICAM 7.5 MG TAB PO SCH (07:36)
[2018-10-21] MEDS: ISOSORBIDE MONONITRATE ER 30 MG TAB.ER.24H PO SCH (07:37)
[2018-10-21] MEDS: DOCUSATE 100 MG CAP PO SCH (07:37)
[2018-10-21] MEDS: FLUoxetine HCL 20 MG CAP PO SCH (07:37)
[2018-10-21] MEDS: GABAPENTIN 100 MG CAP PO SCH ×3 (07:37→21:44)
[2018-10-21] MEDS: METOPROLOL TARTRATE 12.5 MG TAB PO SCH ×2 (07:37→21:46)
[2018-10-21] MEDS: PANTOPRAZOLE 40 MG TABLET PO SCH ×2 (07:37→17:02)
[2018-10-21] MEDS: ASPIRIN 81 MG PO SCH (07:37)
[2018-10-21] MEDS: HEPARIN SODIUM,PORCINE 5,000 UNIT/ML 1 ML VIAL SQ SCH ×3 (07:38→22:57)
[2018-10-21] MEDS: CARBIDOPA-LEVODOPA ER 50-200MG 1 EACH TABLET.ER PO SCH ×4 (07:38→21:46)
[2018-10-21] MEDS: POLYETHYLENE GLYCOL 3350 17 GM POWD.PACK PO SCH (07:38)
[2018-10-21] MEDS: PRAMIPEXOLE 0.5 MG TAB PO SCH ×2 (07:38→21:46)
[2018-10-21] MEDS: HYDROcodone/APAP 5-325MG 1 EACH TAB PO PRN (12:11)
--- NOTE | 2018-10-21 13:41 | PN ---
PROGRESS NOTE DATE OF SERVICE: 10/21/2018 REASON FOR FOLLOWUP: Bilateral lower extremity cellulitis. INTERVAL HISTORY: The patient is currently afebrile. The patient has been feeling better. Breathing comfortably. Still having pain to the right leg though improved, swelling persists, but the redness . No chest pain. No abdominal pain or diarrhea. PHYSICAL EXAMINATION: On examination, blood pressure 165/97 with a pulse of 76, temperature 97.6. He is 96% on 2 L nasal cannula. General description is an elderly male up in the chair in no distress. RESPIRATORY SYSTEM: Unlabored breathing, clear to auscultation anteriorly. HEART: S1, S2. Regular rate and rhythm. ABDOMEN: Soft, no tenderness. LEGS: Swelling improved, redness has decreased. LABS: Hemoglobin is 12.3. White count normalized to 9.7. BUN of 20, creatinine 0.71. Blood culture has been negative. DIAGNOSTIC IMPRESSION AND PLAN: Patient with bilateral lower extremity cellulitis, right greater than the left in this patient who did have diffuse swelling and redness failing outpatient oral Keflex and Bactrim therapy. The patient did well on IV vancomycin that will be transitioned to oral doxycycline 100 mg twice a day for another week to finish his course of therapy. Continue with supportive care. MMODL / IJN: [id number] /
[2018-10-21] MEDS: VANCOMYCIN 1,500 MG in SODIUM CHLORIDE 0.9% 250 ML IVPB SCH (17:02)
[2018-10-21] MEDS: MONTELUKAST 10 MG TAB PO SCH (21:46)
[2018-10-21] MEDS: ATORVASTATIN 40 MG TAB PO SCH (21:46)
[2018-10-21] MEDS: LIDOCAINE 5% OINTMENT 50 GM JAR TOPICAL SCH (21:48)
[2018-10-22 02:03] VITALS: TEMP 97.8
[2018-10-22] MEDS: VANCOMYCIN 1,500 MG in SODIUM CHLORIDE 0.9% 250 ML IVPB SCH (04:48)
[2018-10-22 07:40] LABS: Basophils # (A) 0.1 k/uL (0-0.2); Basophils % (A) 1 %; Eosinophils # (A) 0.4 k/uL (0-0.7); Eosinophils % (A) 4 %; HCT 41.2 % (39.0-53.0); HGB 13.1 gm/dL (13.0-17.5); Lymphocytes # (A) 1.7 k/uL (1.0-4.8); Lymphocytes % (A) 20 %; MCH 30.1 pg (25.0-35.0); MCHC 31.7 g/dL (31.0-37.0); MCV 95.2 fL (80.0-100.0); Mean Platelet Volume 8.6; Monocytes # (A) 0.5 k/uL (0-1.0); Monocytes % (A) 5 %; Neutrophils # (A) 5.6 k/uL (1.3-7.7); Neutrophils % (A) 66 %; Platelet Count 211 k/uL (150-450); RBC 4.33 m/uL (4.30-5.90); RDW 13.5 % (11.5-15.5); WBC 8.5 k/uL (3.8-10.6)
[2018-10-22 07:42] VITALS: BP 176/91; PULSE 75; RESP 16
[2018-10-22 07:53] LABS: African American GFR (CKD) >90 (>60 ml/min/1.73 sqM); Anion Gap 7 mmol/L; Blood Urea Nitrogen 16 mg/dL (9-20); Calcium 9.2 mg/dL (8.4-10.2); Carbon Dioxide 27 mmol/L (22-30); Chloride 105 mmol/L (98-107); Glucose 72 mg/dL (74-99); Potassium 4.6 mmol/L (3.5-5.1); Sodium 139 mmol/L (137-145)
--- NOTE | 2018-10-22 08:09 | PN ---
PROGRESS NOTE DATE OF SERVICE: 10/21/2018 This 73-year-old gentleman who was admitted with bilateral leg cellulitis, right more the left is being closely monitored. No chest pain. No palpitations. No fever. Cultures are negative so far. EXAM: Alert and oriented times three. Pulse is 77, blood pressure 124/75, respiration 18, temperature 98 degrees, pulse ox 94% on room air. HEENT: Conjunctivae normal. NECK: No jugular venous distention. CARDIOVASCULAR: S1, S2 muffled. RESPIRATIONS: Breath sounds diminished in the bases. No rhonchi. No crackles ABDOMEN soft, nontender. LEGS: Bilateral leg cellulitis. Cyanosis present. NERVOUS SYSTEM: No focal deficits. LAB STUDIES: WBC 9.2, hemoglobin 12.3. ASSESSMENT: 1. Acute bilateral leg cellulitis right more than the left with possible sepsis, present on admission. 2. Increased WBC. 3. Failure of outpatient treatment. 4. Increased AST. 5. History of coronary artery disease. 6. History of congestive heart failure, ejection fraction unknown. 7. History of cerebrovascular accident, transient ischemic attack. 8. Hypertension. 9. Hyperlipidemia. 10.History of degenerative joint disease. 11.History of Parkinson's. 12.History of gastroesophageal reflux disease. 13.History of back pain. 14.History of coronary artery disease/stent. 15.History of anxiety/depression. RECOMMENDATIONS AND DISCUSSION: Recommend to continue current medications, continue to monitor, symptomatic treatment. Continue the antibiotics. Monitor blood pressure closely. Further recommendations to follow. MMKRISTAL / MAXIMON: [id number] /
[2018-10-22] MEDS ORDERED: FUROSEMIDE 10 MG/ML 4 ML VIAL IV SCH (09:00)
[2018-10-22] MEDS: CARBIDOPA-LEVODOPA ER 50-200MG 1 EACH TABLET.ER PO SCH ×2 (10:54→14:09)
[2018-10-22] MEDS: DULoxetine HCL 60 MG CAPSULE.DR PO SCH (10:55)
[2018-10-22] MEDS: POLYETHYLENE GLYCOL 3350 17 GM POWD.PACK PO SCH (10:56)
[2018-10-22] MEDS: PRAMIPEXOLE 0.5 MG TAB PO SCH (10:56)
[2018-10-22] MEDS: ASPIRIN 81 MG PO SCH (10:56)
[2018-10-22] MEDS: PANTOPRAZOLE 40 MG TABLET PO SCH (10:57)
[2018-10-22] MEDS: MELOXICAM 7.5 MG TAB PO SCH (10:57)
[2018-10-22] MEDS: METOPROLOL TARTRATE 12.5 MG TAB PO SCH (10:58)
[2018-10-22] MEDS: GABAPENTIN 100 MG CAP PO SCH ×2 (10:58→16:09)
[2018-10-22] MEDS: ISOSORBIDE MONONITRATE ER 30 MG TAB.ER.24H PO SCH (10:58)
[2018-10-22] MEDS: FLUoxetine HCL 20 MG CAP PO SCH (10:58)
[2018-10-22] MEDS: HEPARIN SODIUM,PORCINE 5,000 UNIT/ML 1 ML VIAL SQ SCH (10:59)
[2018-10-22] MEDS: DOCUSATE 100 MG CAP PO SCH (10:59)
[2018-10-22] MEDS: SODIUM CHLORIDE 0.9% 1,000 ML IV SCH (16:09)
--- NOTE | 2018-10-22 19:10 | PN ---
PROGRESS NOTE DATE OF SERVICE: 10/22/2018. REASON FOR FOLLOWUP: Bilateral lower extremity cellulitis, right greater than left. INTERVAL HISTORY: The patient is currently afebrile. Patient has been breathing comfortably. The patient denies having any chest pain or any cough. No abdominal pain or any redness of the right leg. Swelling persists though. PHYSICAL EXAMINATION: Blood pressure 176/90 with pulse of 75, temperature of 97.8. He is 95% on 2 L nasal cannula. General description is an elderly male lying in bed in no distress. Respiratory system unlabored breathing, clear to auscultation anteriorly. Heart S1, S2. Regular rate and rhythm. Abdomen soft, no tenderness. Right leg with swelling. The redness has resolved. LABS: Hemoglobin 13.1 with white count 8.5. BUN of 16, creatinine 0.78. DIAGNOSTIC IMPRESSION AND PLAN: Patient with bilateral lower extremity cellulitis, right greater the left, failing outpatient oral Keflex and Bactrim therapy. The patient did well on IV vancomycin. He will be transitioned to oral doxycycline 100 mg twice a day for about a week. The patient advised to use his compression stockings to keep the swelling down and continue supportive care. MMODL / IJN: [id number] /
--- NOTE | 2018-10-22 21:28 | DS ---
DISCHARGE SUMMARY DATE OF SERVICE: 10/22/2018. FINAL DIAGNOSES: 1. Acute bilateral leg cellulitis right more than the left with possible sepsis present on admission, improved. 2. Increased WBC. 3. Failure of outpatient treatment. 4. Increased AST. 5. History of coronary artery disease. 6. History of congestive heart failure ejection fraction unknown. 7. History of cerebrovascular accident, transient ischemic attack. 8. Hypertension. 9. Hyperlipidemia. 10.History of degenerative joint disease. 11.History of Parkinson's. 12.History of gastroesophageal reflux disease. 13.History of back pain. 14.History of coronary artery disease/stent. 15.History of anxiety, depression. DISCHARGE DISPOSITION: The patient will be discharged in stable condition with guarded prognosis. HISTORY OF PRESENT ILLNESS: This 73-year-old gentleman with past medical history of multiple medical problems was admitted with acute bilateral leg cellulitis. The patient had features of sepsis also. Patient treated with broad-spectrum IV antibiotics. Dr. Lugo, Infectious Disease, saw the patient. Patient improved significantly. The cellulitis improved significantly. Patient being discharged in stable condition with guarded prognosis. On exam, vitals are stable. Cardiovascular: S1, S2. Abdomen soft. Nervous system: No focal deficits. Legs minimal erythema, much improved. DISCHARGE ADVICE AND MEDICATIONS: 1. Discharge diet is cardiac diet. 2. Followup with primary physician in 1-2 days. 3. Follow up with Infectious Disease as recommended. MEDICATIONS: 1. Bactrim DS 1 p.o. b.i.d. 2. Carbidopa/L-dopa one p.o. q.i.d. 3. Colace 100 mg p.o. daily. 4. Cymbalta 60 mg p.o. daily. 5. Ecotrin 81 mg p.o. daily. 6. Fluoxetine 40 mg p.o. daily. 7. Imdur ER 30 mg p.o. daily. 8. Lasix 40 mg p.o. daily. 9. Lipitor 40 mg q.h.s. 10.Lopressor 12.5 mg p.o. daily. 11.Mirapex 0.5 mg p.o. b.i.d. 12.Mobic 7.5 mg p.o. daily. 13.Mycostatin 1 application t.i.d. p.r.n. 14.Neurontin 100 mg p.o. t.i.d. 15.Prilosec 40 mg p.o. b.i.d. 16.Singulair 10 mg p.o. q.h.s. 17.Tylenol p.r.n. 18.Tylenol #3, 1 p.o. b.i.d. p.r.n. 19.Xylocaine topical as directed. 20.Tylenol p.r.n. Once again, the patient will be discharged in stable condition with guarded prognosis. MMODL / IJN: [id number] /
== END 2018-10-22 17:00 | disposition home or self-care (01) | DRG 872 ==
LOC: EC 23:33 → 4SSUR 10-19 00:36
PROVIDERS: ADMIT Internal Medicine; ATTEND Internal Medicine
DX: A41.9 Sepsis, unspecified organism (principal); L03.115 Cellulitis of right lower limb; L03.116 Cellulitis of left lower limb; E78.5 Hyperlipidemia, unspecified; G20 Parkinson's disease; H91.90 Unspecified hearing loss, unspecified ear; I11.0 Hypertensive heart disease with heart failure; I25.10 Atherosclerotic heart disease of native coronary artery without angina pectoris; I89.0 Lymphedema, not elsewhere classified; F32.9 Major depressive disorder, single episode, unspecified; F41.9 Anxiety disorder, unspecified; I50.9 Heart failure, unspecified; M19.90 Unspecified osteoarthritis, unspecified site; K21.9 Gastro-esophageal reflux disease without esophagitis; Z79.1 Long term (current) use of non-steroidal anti-inflammatories (NSAID); Z79.82 Long term (current) use of aspirin; Z79.899 Other long term (current) drug therapy; Z82.49 Family history of ischemic heart disease and other diseases of the circulatory system; Z86.73 Personal history of transient ischemic attack (TIA), and cerebral infarction without residual deficits; Z95.5 Presence of coronary angioplasty implant and graft; Z99.81 Dependence on supplemental oxygen
CPT/HCPCS: 36415; 80048; 80053; 80202; 83605; 85025; 85610; 85730; 87040; 93005; 94760; 99285